=== PATIENT | male | born 1985 | race Caucasian/White ===

== ENCOUNTER 2023-02-15 10:32 | Emergency (ER) | payer OTHER, SELFPAY ==
--- NOTE | ~2023-02-15 | XR_ITS ---
EXAMINATION: XR ANKLE, RIGHT XR FOOT, RIGHT CLINICAL INFORMATION: Pain following inversion injury. COMPARISON: None available. TECHNIQUE: AP, lateral, and mortise views of the right foot and right ankle were obtained. FINDINGS: Oblique, mildly displaced fracture through the base of the 5th metatarsal with extension to the tarsometatarsal articular surface where the fracture gap measures up to 0.5 cm. Overlying lateral soft tissue swelling. Corticated ossification adjacent to the medial malleolus likely indicating a remote avulsion fracture fragment. Dystrophic ossification within the distal tibiofibular syndesmosis. The ankle mortise is maintained. No joint space narrowing or marginal osteophytes. Dorsal calcaneal enthesophyte. XR/XR ankle RT min 3V IMPRESSION: Oblique, mildly displaced fracture through the base of the 5th metatarsal with extension to the tarsometatarsal articular surface. Overlying lateral soft tissue swelling.
--- NOTE | ~2023-02-15 | XR_ITS ---
EXAMINATION: XR ANKLE, RIGHT XR FOOT, RIGHT CLINICAL INFORMATION: Pain following inversion injury. COMPARISON: None available. TECHNIQUE: AP, lateral, and mortise views of the right foot and right ankle were obtained. FINDINGS: Oblique, mildly displaced fracture through the base of the 5th metatarsal with extension to the tarsometatarsal articular surface where the fracture gap measures up to 0.5 cm. Overlying lateral soft tissue swelling. Corticated ossification adjacent to the medial malleolus likely indicating a remote avulsion fracture fragment. Dystrophic ossification within the distal tibiofibular syndesmosis. The ankle mortise is maintained. No joint space narrowing or marginal osteophytes. Dorsal calcaneal enthesophyte. XR/XR foot RT min 3V IMPRESSION: Oblique, mildly displaced fracture through the base of the 5th metatarsal with extension to the tarsometatarsal articular surface. Overlying lateral soft tissue swelling.
[2023-02-15 10:57] VITALS: BP 140/89; PULSE 90; RESP 20; TEMP 36.4; O2SAT 95; BMI 36.9
--- NOTE | 2023-02-15 10:57 | ED.LOWEXIN ---
HPI - Extremity Injury (Lower) General Chief Complaint: Extremity Injury, Lower Stated Complaint: R foot inj-work related Time Seen by Provider: 02/15/23 12:20 Source: patient Mode of arrival: ambulatory Limitations: no limitations History of Present Illness HPI Narrative: 38-year-old male presents to the ED for twisting ankle/ foot while walking on the curb in front of his job. Patient denies falling to the ground or hitting head. Patient denies any other trauma. Patient states pain on ambulation of right foot. Related Data Previous Rx's Medication Instructions Recorded naproxen 500 mg tablet 500 mg PO BID PRN pain 7 days #14 02/15/23 tabs oxycodone 5 mg capsule 5 mg PO TID PRN pain 3 days #9 caps 02/15/23 Allergies Allergy/AdvReac Type Severity Reaction Status Date / Time No Known Allergies Allergy Verified 02/15/23 11:01 Review of Systems Review of Systems: Right foot pain Yes all other systems are reviewed and are negative [facility] Social History Social History Advance Directives: No Physical Exam Vital Signs: Vital Signs: Last Vital Signs Temp 97.6 F 02/15/23 10:57 Pulse 90 02/15/23 10:57 Resp 20 02/15/23 10:57 BP 140/89 H 02/15/23 10:57 Pulse Ox 95 02/15/23 10:57 O2 Del Method Room Air 02/15/23 10:57 BMI result Body Mass Index 36.9 Const: General: cooperative, healthy appearing, comfortable, no acute distress, well developed, alert, awake and Physically active Orientation/consciousness: oriented to person, oriented to place, oriented to time and patient oriented x3 HEENT: Head: Yes normal to inspection, Yes No palpable skull fracture present, Yes normocephalic, Yes atraumatic and No abrasion Eyes: General: appearance normal, both eyes and all related structures Neck: Neck: Yes normal visual inspection, Yes full ROM, Yes no lymphadenopathy, Yes no meningeal signs, Yes trachea midline, Yes supple, No anterior neck swelling and No tender Chest: Chest palpation & inspection: normal inspection of the chest and normal palpation of entire chest wall Resp: Effort & Inspection: normal respiratory effort and able to speak in complete sentences Auscultation: clear to auscultation bilaterally Cardio: Jugular venous distension: no JVD Heart sounds: S1 normal heart sound present and S2 normal heart sound present GI: Inspection: No abdominal wall ecchymosis Palpation (GI): Soft to palpation, not firm, nontender, no guarding and not rigid : General: No CVA tenderness and Yes no CVA tenderness Back/Spine/Pelvis: Back: no CVA tenderness, No CVA tenderness and No back tenderness Skin: General skin exam: no rashes or lesions noted and elasticity normal Neuro: General: oriented to person, oriented to place, oriented to time, patient oriented x3, tone normal, moves all extremities, Normal light touch and pain sensation, no meningeal signs, no focal motor deficits, CN's II-XI intact bilaterally and normal sensation to monofilament Extrem: General: Yes normal to inspection and Yes full ROM Ankle/foot/toe images: 1. positive for tenderness on palpation. Negative for crepitus, ecchymosis or deformity. Positive for slight swelling. Negative erythema. Neurovascular exam intact. Motor exam intact but limited due to pain Psych: Appearance: grossly normal, well kempt and not disheveled Course Course Course Narrative: This is an RME: Additional HPI, ROS, PE not included below will be deferred to primary provider. This is a [id number]-male presenting to the emergency department with a complaint of right foot pain since today. Pt states that he was walking in a parking lot and inverted his right ankle. He immediately felt a pop in his right foot. Patient has been unable to bear weight on his foot since. Medial and lateral malleoli are nontender. Patient has exquisite tenderness palpation overlying the right 5th metatarsal. Good DP pulse. Plan: xray foot and ankle Medications Administered Discontinued Medications Generic Name Dose Route Start Last Admin Trade Name Kassi PRN Reason Stop Dose Admin Acetaminophen 975 mg 02/15/23 13:46 02/15/23 14:12 Acetaminophen 325 Mg Tablet PO 02/15/23 13:47 975 mg ONCE ONE Administration Ibuprofen 800 mg 02/15/23 13:46 02/15/23 14:12 Ibuprofen 800 Mg Tablet PO 02/15/23 13:47 800 mg ONCE ONE Administration Medical Decision Making Medical Decision Making MDM Narrative: 38-year-old male presents to ED for right foot pain after twisting foot on probing front of his job. Patient denies falling to the ground patient denies hitting head or loss of consciousness. Patient states no other trauma. Right lower extremity neurovascular exam intact. Motor exam intact but limited due to pain. Whole-body expecting negative for signs of obvious life-threatening traumatic injury. Patient placed in splint and crutches. Patient informed to follow-up with orthopedic surgeon. Patient educated on signs of DVT, cellulitis, or compartment syndrome and informed to return to the ED immediately if he has them any other concerning symptoms Differential Diagnosis Differential Diagnoses: The differential diagnosis associated with the presentation includes ( ankle fracture, foot fracture, ankle foot dislocation,) Independent Interpretation I performed an independent interpretation of an: Plain X-Ray Radiology Impression Discussion of test interpretation with radiology: I have reviewed the radiologist's reading. External Record Review External record reviewed: Other ( prior visits) Prescription Management I considered prescription management with: Pain Medication Discharge Plan Discharge Clinical Impression: Fracture of base of fifth metatarsal bone Patient Disposition: Home, Self-Care Instructions: Crutch Instructions (ED), Foot Fracture in Adults (ED) Additional Instructions: you need follow-up with our connection and also orthopedic surgeon. You will be discharged with pain medication. Return to the ED immediately for worsening pain and right lower extremity, bluish black discoloration of toes, numbness/tingling lower extremity, swelling, redness, calf pain, chest pain, shortness of breath, fever, chills, or any other concerning symptoms. Prescriptions: New naproxen 500 mg tablet 500 mg PO BID PRN (Reason: pain) 7 Days Qty: 14 0RF oxycodone 5 mg capsule 5 mg PO TID PRN (Reason: pain) 3 Days Qty: 9 0RF Rx Instructions: Partial Fill upon patient request. Referrals: [facility] [Provider Group] ( right 5th base metatarsal fracture) [facility] [Outside] ( Right 5th base metatarsal fracture) Stand Alone Forms: Work/School Release Interventions: ED Discharge Assessment Last Done: 02/15/23 14:59 Discharge Date/Time: 02/15/23 15:00 Print Language: Albanian
[2023-02-15] MEDS: Acetaminophen 325 MG TABLET 975 MG PO (14:12)
[2023-02-15] MEDS: Ibuprofen 800 MG TABLET PO (14:12)
--- NOTE | 2023-02-15 14:13 | PC.NURSE ---
pt medicated per MAR
== END 2023-02-15 15:00 | disposition home or self-care (01) ==
PROVIDERS: Emergency Provider Internal Medicine
DX: S92.351A Displaced fracture of fifth metatarsal bone, right foot, initial encounter for closed fracture (principal); M25.571 Pain in right ankle and joints of right foot; X50.1XXA Overexertion from prolonged static or awkward postures, initial encounter; Y93.9 Activity, unspecified; Y92.9 Unspecified place or not applicable; Y99.9 Unspecified external cause status
CPT/HCPCS: 29515; 73610; 73630; 99283; 99284

== ENCOUNTER 2023-02-25 10:25 | Outpatient (AMB) | payer OTHER, SELFPAY ==
--- NOTE | 2023-02-25 10:27 | A.OFFVIS_ITS ---
Intake Vital Signs 02/25/23 10:50 Height 5 ft 9 in Weight 250 lb BMI 36.9 Intake Visit Reasons: fc- right fifth metatarsal fracture Intake Note: Paul a 38 year old male presents today for an ER follow up of right 5th metatarsal fx, DOI 02/15/23. Patient reports while leaving a work meeting he fell on asphalt causing him to invert his right ankle. He immediately felt a pop in his right foot, presented to [facility] ED the same day where xrays were taken and placed in a splint. Currently he has dull pain pain that increases with accidentally bumping his foot. Allergies No Known Allergies Allergy (Verified 02/25/23 10:30) HPI fc- right fifth metatarsal fracture HPI Details 38-year-old male who presents to the off ice today for an injury he sustained to his right foot while at work on 02/15/23. He states he was iin a parking lot and he was on the handicap ramp when he inverted his right ankle and felt a pop, He was seen at ED where he was given a splint and referred to our office. He currently states he has dull pain in his small toe which is aggravated with accidentally bumping. He is unable to weight bear since his DOI. 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 Review of Systems Const All systems reviewed & are unremarkable except as noted in HPI and below Physical Exam Vital Signs: BMI result Body Mass Index 36.9 Const General: cooperative, healthy appearing, comfortable, no acute distress, well developed and alert Orientation/consciousness: patient oriented x3 HEENT Head: Yes normal to inspection, Yes normocephalic and Yes atraumatic Eyes General: appearance normal, both eyes and all related structures Neck Neck: Yes normal visual inspection and Yes no lymphadenopathy Resp Effort & Inspection: normal respiratory effort and able to speak in complete sentences Cardio Rate: regular rate Peripheral pulses: Peripheral pulses 2+ throughout GI Inspection: Yes normal to inspection Palpation (GI): Soft to palpation Skin General skin exam: no rashes or lesions noted Neuro General: patient oriented x3 Extrem Other: Right foot: Skin intact. There is some bruising of the lateral edge of the left foot. There is tenderness at the base of the 5th metatarsal. Sensation intact. EHL intact. No pain along the mediolateral malleolus. Neurovascularly intact. Psych Appearance: grossly normal Mental Status: mental status grossly normal Office Procedures Fracture Care Fracture Billing Code: Fracture Billing Code Results Reviewed Results Reviewed: xrays of the right foot obtained in the ED on 02/15/23 show a displaced 5th meta tarsal fracture Assessment & Plan Assessment & Plan (1) Fracture of fifth metatarsal bone of right foot: Code(s): S92.351A - Displaced fracture of fifth metatarsal bone, right foot, initial encounter for closed fracture Qualifiers: Encounter type: initial encounter Fracture type: closed Fracture alignment: displaced Qualified Code(s): S92.351A - Displaced fracture of fifth metatarsal bone, right foot, initial encounter for closed fracture Plan I discussed the case with Dr. Alejandra. I discussed the extent of the injury to the patient and options available. Given the extent of the fracture pattern and high risk of further displacement, it is recommended that we surgically fix this to help with stability and restoring anatomy. I explained to the patient the procedure in detail along with the risks, benefits and alternatives. Risks including but not limited to infection, wound breakdown, stiffness, ongoing pain, nonunion or malunion, and possible complications with hardware. He does understand all this and would like to proceed with open reduction internal fixation of the 5th metatarsal with Dr. Alejandra. He will be booked accordingly. Patient Instructions: Scribed for Wilda Carias PA-C, by Rico Borrego medical/surgery registered nurse, on 02/25/2023 at 10:30 AM EST. Wilda Brandt PA-C, have personally reviewed and agree with the information entered by the scribe. Coding Level of Care Code Global (88872) Diagnoses Closed displaced fracture of fifth metatarsal bone of right foot, initial encounter S92.351A Encounter type: initial encounter Fracture type: closed Fracture alignment: displaced CPT Codes Fracture Care - Fracture Billing Code: Fracture Billing Code ([id number])
[2023-02-25 10:50] VITALS: BMI 36.9
== END 2023-02-25 11:25 | disposition home or self-care (01) ==
PROVIDERS: Visit Provider Physician Assistant
DX: S92.351A Displaced fracture of fifth metatarsal bone, right foot, initial encounter for closed fracture (principal)
CPT/HCPCS: 99204

== ENCOUNTER → 2023-02-25 10:25 | Outpatient (BNVA) | payer OTHER, SELFPAY | PROVIDERS: Visit Provider Physician Assistant | DX: S92.351A Displaced fracture of fifth metatarsal bone, right foot, initial encounter for closed fracture (principal); X50.1XXA Overexertion from prolonged static or awkward postures, initial encounter; W01.198A Fall on same level from slipping, tripping and stumbling with subsequent striking against other object, initial encounter; Y93.01 Activity, walking, marching and hiking; Y92.89 Other specified places as the place of occurrence of the external cause; Y99.0 Civilian activity done for income or pay | CPT/HCPCS: 99202 ==

== ENCOUNTER 2023-03-03 10:41 | Day surgery (SDC) | payer OTHER, SELFPAY ==
--- NOTE | 2023-03-02 10:02 | P.CONAN_ITS ---
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 Meds Allergies Allergy/AdvReac Type Severity Reaction Status Date / Time No Known Allergies Allergy Verified 02/25/23 10:30 Exam Exam Date and Time: March 02, 2023 1002 Assessment and Plan Assessment Anesthesia Assessment: Chart Reviewed Documented by User: Mayra Courtney MD 03/03/23 11:13 HPI - Anesthesia Eval Consult details Narrative: 38yo M for Right 5th Metatarsal ORIF morbid obesity PMFSH Family History Family history of problems with anesthesia: No Surgical History History of Problems with Anesthesia: No Social History Social History Patient Tobacco Use Status: Never used Tobacco Are you DNR?: No Advance Directives: No Advance Directives Information Provided: Yes Current occupational status: employed 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 Meds Allergies Allergy/AdvReac Type Severity Reaction Status Date / Time No Known Allergies Allergy Verified 02/25/23 10:30 Exam Airway Mallampati Class: II (but morbid obesity) TM Dist: >3cm Neck ROM: Full Heart: rrr Lungs: cta Assessment and Plan Assessment Anesthesia Assessment: Anesthesia Plan Discussed Final Anesthetic Review Family History of Problems with Anesthesia: No History of Problems with Anesthesia: No NPO: Yes ASA Class: II Final Preanesthetic Review: No Changes in Pt Med Stat, Meds/Allgs Chart Reviewed, Consent Obtained/Reviewed and Anes Risks/Benef Reviewed Patient Risk: Intermediate Procedure Risk: Low Anesthetic Plan Anesthetic Plan: GA and Regional Block Disposition: Standard PACU
--- NOTE | ~2023-03-03 | FL_ITS ---
EXAMINATION: XR FLUOROSCOPY WITH IMAGES CLINICAL INFORMATION: Fracture right 5th metacarpal. COMPARISON: Right foot x-ray 02/15/2023 TECHNIQUE: Fluoroscopy Supervised By: Dr. Alexis Alejandra. Fluoroscopy Time: 1.0 minute. Cumulative Dose: 3.33 mGy. DAP: 0.0578 Gycm2. Images: 4. FINDINGS: Images demonstrate screw transfixing fracture of the base of the right fifth metatarsal bone with improved alignment. FL/FL guidance in OR IMPRESSION: Fluoroscopy guidance for ORIF of right fifth metatarsal fracture
[2023-03-03 10:42] VITALS: BP 139/106; PULSE 95; RESP 18; TEMP 35.8; O2SAT 97; BMI 35.4
[2023-03-03] MEDS: Lactated Ringers 1,000 ML 100 ML IVCONT (11:09)
--- NOTE | 2023-03-03 13:45 | MHC.SHP ---
Pre-Procedural Eval Section A Date of Service: 03/03/23 The patient is an INPATIENT: No Changes since office visit: No Cold of Flu in the past 2 weeks, No New Medical Problems, No Changes in Medication and No Patient answered all questions The History & Physical has been completed within 30 days and I have reviewed it.: Yes Section B Chief Complaint: Displaced fracture of fifth metatarsal bone, right Allergies: Allergies Allergy/AdvReac Type Severity Reaction Status Date / Time No Known Allergies Allergy Verified 02/25/23 10:30 Plan I have reviewed the history and physical and performed a pertinent physical examination on my patient. No changes have occurred unless specified. Time Spent With Patient Time: Total time managing care of this patient today ____ minutes.
--- NOTE | 2023-03-03 13:46 | PM.OP ---
Brief Operative Note Date of Service: 03/03/23 Pre-op diagnosis: Right 5th MT fracture Post-op diagnosis: same Procedure: ORIF right 5th MT fracture Implants: Bonnyman partially threaded cancellous screw 5 x 46 Surgeon: Alexis Alejandra MD Anesthesia: GLMA and regional Was an Freelance Court Reporter used for this Procedure?: Yes Freelance Court Reporter: Kimmie Anne Estimated blood loss (mL): 25 IV fluids (mL): 800 Pathology: none sent Condition: stable Disposition: PACU
[2023-03-03 13:54] VITALS: BP 148/93; PULSE 77; RESP 16; TEMP 36.1; O2SAT 99
[2023-03-03 13:59] VITALS: BP 153/111; PULSE 79; RESP 16; O2SAT 99
[2023-03-03 14:04] VITALS: BP 143/98; PULSE 72; RESP 16; O2SAT 99
[2023-03-03 14:09] VITALS: BP 133/87; PULSE 77; RESP 16; O2SAT 99
[2023-03-03 14:24] VITALS: BP 133/76; PULSE 67; RESP 16; TEMP 35.8; O2SAT 99
--- NOTE | 2023-03-25 20:25 | P.OP_ITS ---
Operative Note Operative Note Date of Service: 03/03/23 Narrative: Date of Service: 03/03/23 Pre-op diagnosis: Right 5th MT fracture Post-op diagnosis: same Procedure: ORIF right 5th MT fracture Implants: Familia partially threaded cancellous screw 5 x 46 Surgeon: Alexis Alejandra MD Anesthesia: GLMA and regional Was an Mortgage Or Loan Underwriter used for this Procedure?: Yes Mortgage Or Loan Underwriter: Kimmie Anne Estimated blood loss (mL): 25 IV fluids (mL): 800 Pathology: none sent Condition: stable Disposition: PACU Procedure in detail: Patient was brought to the operating room and placed supine on the surgical table. He was prepped and draped in standard sterile fashion and a time out was called to identify proper site, proper procedure and IV antibiotics per weight were administered. I began by localizing the fracture using biplanar fluoro. Once I was certain I could easily image the proximal 5th MT I made a 1 cm inc proximal to the base of the 4th. The superior aspect of the proximal fragment was visualized and the extensor tendon was avoided. I used a sharp tenaculum to reduce the fracture provisionally. This was accomplished but the proximal fragment was small. I placed a k-wire and then measured my screw length and inserted a 5 mm screw x 46 mm until I had an anatomic reduction. I confirmed the reduction and hardware placement with biplanar fluoro. The wound was cleaned and then closed. there were no known complications. Sterile dressings were applied. A lateral splint was also placed.
== END 2023-03-03 15:23 | disposition home or self-care (01) ==
LOC: HO.SSS 10:41
PROVIDERS: Visit Provider Orthopaedic Surgery
PROC: (CPT 28485; principal; 2023-03-03 14:10)
DX: S92.351A Displaced fracture of fifth metatarsal bone, right foot, initial encounter for closed fracture (principal); X50.1XXA Overexertion from prolonged static or awkward postures, initial encounter; Y93.01 Activity, walking, marching and hiking; Y92.481 Parking lot as the place of occurrence of the external cause; Y99.0 Civilian activity done for income or pay
CPT/HCPCS: 28485; C1713; J0665; J0690; J1100; J2250; J2405; J2704; J3010

== ENCOUNTER → 2023-03-03 10:41 | Outpatient (BNV) | payer OTHER, SELFPAY | PROVIDERS: Visit Provider Orthopaedic Surgery | DX: S92.351A Displaced fracture of fifth metatarsal bone, right foot, initial encounter for closed fracture (principal) | CPT/HCPCS: 28485 ==

== ENCOUNTER 2023-03-16 10:38 | Outpatient (REF) | payer OTHER, SELFPAY ==
--- NOTE | ~2023-03-16 | XR_ITS ---
EXAMINATION: XR FOOT, RIGHT CLINICAL INFORMATION: Pain in the right foot COMPARISON: 02/15/2023 TECHNIQUE: AP, lateral, and oblique views of the right foot. FINDINGS: Patient is status post FUSION WITH SINGLE SCREW fracture fragment of the base of the fifth metatarsal tarsal bone. Fragments are close to anatomical alignment fracture line is still visualized. There are skin izzy present. XR/XR foot RT min 3V IMPRESSION: Postsurgical changes with placement of compression screw at the fifth metatarsal bone
== END 2023-03-16 10:39 | disposition home or self-care (01) ==
LOC: HO.HOSX 10:38
PROVIDERS: Visit Provider Physician Assistant
DX: S92.351D Displaced fracture of fifth metatarsal bone, right foot, subsequent encounter for fracture with routine healing (principal)
CPT/HCPCS: 73630

== ENCOUNTER 2023-03-16 14:14 | Outpatient (AMB) | payer OTHER, SELFPAY ==
--- NOTE | 2023-03-16 14:29 | MHC.OFFVIS ---
Intake Intake Visit Reasons: PO Rt ORIF 5th metatarsal 03/03/23 NE Intake Note: Paul is a 38 year old male who presents today for a post op appointment s/p right ORIF 5th metatarsal 03/03/23 NE. Patient reports no pain or discomfort. He states that he is having a really bad back spasm. Allergies No Known Allergies Allergy (Verified 03/16/23 14:30) HPI PO Rt ORIF 5th metatarsal 03/03/23 NE HPI Details 38-year-old male who presents in the office today 13 days status post right foot 5th metatarsal fracture ORIF, which was performed on 03/03/[address] Alejandra. The patient reports no pain or discomfort in the right foot while in the office today. The patient reports severe back spasms. OF NOTE: While in the room the patient was diaphoretic, extremely pale, and excessively perspiring. He felt nauseous and was given an emesis bag. 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 Review of Systems Const All systems reviewed & are unremarkable except as noted in HPI and below Physical Exam Const General: cooperative, healthy appearing and no acute distress Resp Effort & Inspection: normal respiratory effort and able to speak in complete sentences Cardio Rate: regular rate Peripheral pulses: Peripheral pulses 2+ throughout GI Palpation (GI): Soft to palpation Skin Lesions: no lesions Rashes: no rashes Extrem Other: Right foot: Incision site is clean, dry, and intact. Staple intact. No surrounding erythema or drainage. No signs of infection. Sensation intact. Pedal pulse intact. Assessment & Plan Assessment & Plan (1) Fracture of fifth metatarsal bone of right foot: Code(s): S92.351A - Displaced fracture of fifth metatarsal bone, right foot, initial encounter for closed fracture Qualifiers: Encounter type: initial encounter Fracture alignment: displaced Fracture type: closed Qualified Code(s): S92.351A - Displaced fracture of fifth metatarsal bone, right foot, initial encounter for closed fracture Plan Mr. Madrid is a 38-year-old male who presents in the office today 13 days status post right foot 5th metatarsal fracture ORIF, which was performed on 03/03/[address] Alejandra. The patient reports no pain or discomfort in the right foot while in the office today. The patient reports severe back spasms. OF NOTE: While in the room the patient was diaphoretic, extremely pale, and excessively perspiring. He felt nauseous and was given an emesis bag. Back: Patient is complaining of severe back spasms at this time. He states the back spasms are so sever that he is having difficulty breathing. I have suggested to the patient that he should present to the ED for further evaluation and treatment and pain management. The patient is apprehensive at this time and does not wish to proceed to the emergency department. I spoke with our Pain Management office, to Osiris Curry, for recommendation for muscle spasms. She recommended a prescription for Flexeril 5 mg TID and stated he may take 2 tabs at bedtime PRN. A prescription was sent to the pharmacy today. He was instructed he should not drive while taking the medication. If his symptoms worsen he should present to the emergency department. Right foot: Emiliana were removed and steri-stripes were applied while in the office today. He was placed in a custom made short leg cast. He will continue to remain non-weight bearing. Follow up will be in 4 weeks with repeat x-rays out of the cast, or sooner if needed. X-rays of the right foot which were obtained while in the office today and were reviewed by me, Kimmie Anne PA-C, revealed orthopedic hardware intact with routine healing. Orders: Orders XR foot RT min 3V 03/16/23 M79.673 - Pain in unspecified foot Medications: New cyclobenzaprine 5 mg PO TID 28 tabs 0RF Patient Instructions: Scribed for Kimmie Anne PA-C by Renu Landers medical care administrator, on 03/16/2023 at 2:17 pm, EST. Coding Level of Care Code Global (63723) Diagnoses Closed displaced fracture of fifth metatarsal bone of right foot, initial encounter S92.351A Encounter type: initial encounter Fracture alignment: displaced Fracture type: closed
== END 2023-03-16 16:53 | disposition home or self-care (01) ==
PROVIDERS: Visit Provider Physician Assistant
DX: S92.351A Displaced fracture of fifth metatarsal bone, right foot, initial encounter for closed fracture (principal)
CPT/HCPCS: 99024

== ENCOUNTER 2023-04-08 12:28 | Outpatient (REF) | payer OTHER, SELFPAY ==
--- NOTE | ~2023-04-08 | XR_ITS ---
EXAMINATION: XR FOOT, RIGHT CLINICAL INFORMATION: Pain. COMPARISON: Radiograph right foot 03/16/2023. TECHNIQUE: AP, lateral, and oblique views of the right foot. FINDINGS: Redemonstration of partially cannulated screw along the proximal aspect of the fifth metatarsal with increased osseous bridging and less distinct fracture line at the base of the fifth metatarsal. New mildly displaced periprosthetic fracture along the proximal aspect of the fifth metatarsal just superior to the screw. Increased soft tissue swelling along the dorsal surface of the forefoot on the lateral view. XR/XR foot RT min 3V IMPRESSION: 1. New mildly displaced periprosthetic fracture along the proximal aspect of the fifth metatarsal just superior to the screw. 2. Healing fracture at the base of the fifth metatarsal. 3. Nonspecific increased soft tissue swelling along the dorsal surface of the forefoot on the lateral view. The report will be called to the ordering clinician by a [facility] [employer].
== END 2023-04-08 12:29 | disposition home or self-care (01) ==
LOC: HO.HOSX 12:28
PROVIDERS: Visit Provider Physician Assistant
DX: S92.351D Displaced fracture of fifth metatarsal bone, right foot, subsequent encounter for fracture with routine healing (principal)
CPT/HCPCS: 73630; 99212

== ENCOUNTER 2023-04-08 12:28 | Outpatient (AMB) | payer OTHER, SELFPAY ==
--- NOTE | 2023-04-08 13:53 | MHC.OFFVIS ---
Intake Intake Visit Reasons: PO Rt ORIF 5th metatarsal 03/03/23 NE Allergies No Known Allergies Allergy (Verified 03/16/23 14:30) HPI PO Rt ORIF 5th metatarsal 03/03/23 NE HPI Details 38-year-old male who presents in the office today for a cast change; 13 days status post right foot 5th metatarsal fracture ORIF, which was performed on 03/03/[address] Alejandra. 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 Review of Systems Const All systems reviewed & are unremarkable except as noted in HPI and below Physical Exam Const General: cooperative, healthy appearing and no acute distress Resp Effort & Inspection: normal respiratory effort and able to speak in complete sentences Cardio Rate: regular rate Peripheral pulses: Peripheral pulses 2+ throughout GI Palpation (GI): Soft to palpation Skin Lesions: no lesions Rashes: no rashes Extrem Other: Right foot: Superficial skin is macerated from getting wet in the shower and remaining in the cast for several hours after. No surrounding erythema or drainage at the incision site. No signs of infection. Able to dorsiflex, plantarflex, pronate, and supinate with mild stiffness. Sensation intact. Pedal pulse intact. Assessment & Plan Assessment & Plan (1) Fracture of fifth metatarsal bone of right foot: Code(s): S92.351A - Displaced fracture of fifth metatarsal bone, right foot, initial encounter for closed fracture Qualifiers: Encounter type: initial encounter Fracture alignment: displaced Fracture type: closed Qualified Code(s): S92.351A - Displaced fracture of fifth metatarsal bone, right foot, initial encounter for closed fracture Plan Mr. Madrid is a 38-year-old male who presents in the office today for a cast change; 13 days status post right foot 5th metatarsal fracture ORIF, which was performed on 03/03/[address] Alejandra. The case was reviewed with Dr. Alejandra who was in the office today but unable to see the patient with me and a collaborative treatment plan was made. Based off the x-rays obtained today he was transitioned out of the cast into a walking boot, off the shelf. He was instructed if he has no pain with weight bearing he may weight bear as tolerated. However, should he have pain then he should limit weight bearing until his follow up. Follow up will be in 3 weeks with repeat x-rays and Dr. Alejandra in the office, or sooner if needed. X-rays of the right foot which were obtained while in the office today and were reviewed by me, Kimmie Anne PA-C, revealed intact orthopedic hardware with routine healing. Orders: Orders XR foot RT min 3V 04/08/23 M79.673 - Pain in unspecified foot Patient Instructions: Scribed for Kimmie Anne PA-C by Renu Landers medical staff services manager, on 04/08/2023 at 12:31 pm, EST. Coding Level of Care Code Global (03945) Diagnoses Closed displaced fracture of fifth metatarsal bone of right foot, initial encounter S92.351A Encounter type: initial encounter Fracture alignment: displaced Fracture type: closed
== END 2023-04-08 13:24 | disposition home or self-care (01) ==
PROVIDERS: Visit Provider Physician Assistant
DX: S92.351A Displaced fracture of fifth metatarsal bone, right foot, initial encounter for closed fracture (principal)
CPT/HCPCS: 99024

== ENCOUNTER 2023-04-09 11:58 | Outpatient (REF) | payer OTHER, SELFPAY | END 2023-04-09 11:59 | disposition home or self-care (01) | LOC: HO.HOSX 11:58 | PROVIDERS: Visit Provider Physician Assistant | DX: Z13.89 Encounter for screening for other disorder (principal) ==

== ENCOUNTER 2023-04-29 10:06 | Outpatient (REF) | payer OTHER, SELFPAY ==
--- NOTE | ~2023-04-29 | XR_ITS ---
EXAMINATION: XR FOOT, RIGHT CLINICAL INFORMATION: Foot pain COMPARISON: 02/15/2023 and 04/08/2023 TECHNIQUE: 3 views of the right foot. FINDINGS: Again noted is the avulsion fracture fragment of the base of the fifth metatarsal which has been stabilized by a cannulated lag screw. No hardware loosening. There is persistent lucency along fracture margins. Difficult to determine whether there is any bridging bone between the base fragment and the remainder of the metatarsal. Partial healing along the fracture line is suspected. Again noted is the healing minimally displaced fracture of medial cortex of the distal diaphysis of the fifth metatarsal. No new fractures. Bones have normal alignment throughout the foot. The soft tissue swelling of the dorsal forefoot is similar in appearance compared to 04/08/2023. XR/XR foot RT min 3V IMPRESSION: * No evidence of loosening of the fifth metatarsal fixation screw. The avulsion fracture fragment remains reduced into near-anatomic position. Mild partial healing of the fracture fragment is suspected. * Again noted is a healing minimally displaced fracture involving the medial cortex of the distal diaphysis of the fifth metatarsal. No new fractures.
== END 2023-04-29 10:07 | disposition home or self-care (01) ==
LOC: HO.HOSX 10:06
PROVIDERS: Visit Provider Physician Assistant
DX: S92.351D Displaced fracture of fifth metatarsal bone, right foot, subsequent encounter for fracture with routine healing (principal); M79.671 Pain in right foot; Z98.890 Other specified postprocedural states
CPT/HCPCS: 73630; 99212

== ENCOUNTER 2023-04-29 11:15 | Outpatient (AMB) | payer OTHER, SELFPAY ==
--- NOTE | 2023-04-29 11:25 | MHC.OFFVIS ---
Intake Vital Signs 04/29/23 11:26 Height 5 ft 9 in Weight 240 lb BMI 35.4 Intake Visit Reasons: PO Rt ORIF 5th metatarsal 03/03/23 NE Intake Note: Paul is a 38 year old male who presents today for a post op appointment s/p right ORIF 5th metatarsal 03/03/23 NE. Patient reports he has been feeling better over this past weekend, 04/24/23. He states that his foot was swollen and hard to the touch until he began flexing his toes and started walking with the boot and crutch. He primarily uses his scooter to get around his home without using the boot. On 04/28/23 he took his trash out over to the dumpster down the road. He wore the boot but did not use crutches or his scooter. Once he returned home he took the boot off and described his right foot to be swollen but mushy. He reports the swelling has gone down a little today, 04/29/23, but still has some swelling. Cloth Checker Required: No Allergies No Known Allergies Allergy (Verified 04/29/23 11:32) HPI PO Rt ORIF 5th metatarsal 03/03/23 NE HPI Details 38-year-old male who presents in the office today 2 months status post right foot 5th metatarsal fracture ORIF, which was performed on 03/03/[address] Alejandra. I last saw the patient on 04/08/2023 when he was transitioned out of the cast and into a walking boot. He was told he may weight bear as tolerated. While in the office today he reports he has been feeling better over the weekend. He claims to have edema in the foot and states they are hard to the touch until he begins to flex the toes. 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 Review of Systems Const All systems reviewed & are unremarkable except as noted in HPI and below Physical Exam Vital Signs: BMI result Body Mass Index 35.4 Const General: cooperative, healthy appearing and no acute distress Resp Effort & Inspection: normal respiratory effort and able to speak in complete sentences Cardio Rate: regular rate Peripheral pulses: Peripheral pulses 2+ throughout GI Palpation (GI): Soft to palpation Skin Lesions: no lesions Rashes: no rashes Extrem Other: Right foot: Skin intact mild-mod edea. No surrounding erythema or drainage at the incision site. No signs of infection. Able to dorsiflex, plantarflex, pronate, and supinate with mild stiffness. Sensation intact. Pedal pulse intact. Assessment & Plan Assessment & Plan (1) Fracture of fifth metatarsal bone of right foot: Code(s): S92.351A - Displaced fracture of fifth metatarsal bone, right foot, initial encounter for closed fracture Qualifiers: Encounter type: initial encounter Fracture alignment: displaced Fracture type: closed Qualified Code(s): S92.351A - Displaced fracture of fifth metatarsal bone, right foot, initial encounter for closed fracture Plan Mr. Madrid is a 38-year-old male who presents in the office today 2 months status post right foot 5th metatarsal fracture ORIF, which was performed on 03/03/[address] Alejandra. I last saw the patient on 04/08/2023 when he was transitioned out of the cast and into a walking boot. He was told he may weight bear as tolerated. While in the office today he reports he has been feeling better over the weekend. He claims to have edema in the foot and states they are hard to the touch until he begins to flex the toes. The patient will be attending physical therapy for pain and edema management. He will begin to wean out of the boot at this time. I updated his work status to restricting work hour to between 32-40 hours per week with the goal of working 40 hours per week. An 8 hour work day is allowed. Follow up will be in 6 weeks with repeat x-rays, or sooner if needed. X-rays of the right foot which were obtained while in the office today and were reviewed by me, Kimmie Anne PA-C, revealed orthopedic hardware intact with routine healing. Orders: Orders XR foot RT min 3V Today M79.673 - Pain in unspecified foot PT Evaluation and Treatment Today S92.351A - Displaced fracture of fifth metatarsal bone, right foot, initial encounter for closed fracture Patient Instructions: Scribed for Kimmie Anne PA-C by Renu Landers medical and scientific illustrator, on 04/29/2023 at 11:17 am, EST. Coding Level of Care Code Global (77059) Diagnoses Closed displaced fracture of fifth metatarsal bone of right foot, initial encounter S92.351A Encounter type: initial encounter Fracture alignment: displaced Fracture type: closed
[2023-04-29 11:26] VITALS: BMI 35.4
== END 2023-04-29 11:55 | disposition home or self-care (01) ==
PROVIDERS: Visit Provider Physician Assistant
DX: S92.351A Displaced fracture of fifth metatarsal bone, right foot, initial encounter for closed fracture (principal)
CPT/HCPCS: 99024

== ENCOUNTER 2023-06-09 16:00 | Outpatient (RCR) | payer OTHER, SELFPAY ==
--- NOTE | 2023-05-07 11:52 | MHC.PT.EP ---
[facility] [place] Office [place] Office [place] Office [address] Deneen Sevilla [address] [phone] F: [phone] F: [phone] F: [phone] F: [phone] Physical Therapy Plan of Care Date of Evaluation: 05/07/23 Date of Surgery: 03/03/23 Diagnosis: DISPLACED FX OF 5TH METATARSAL BONE, Rt FOOT->PO Rt ORIF 5th metatarsal 03/03/23 NE Assessment: 38 YO MALE REF TO PT S/P ORIF Rt METATARSAL FX 03/03/23 (INITIAL FALL 02/15/23) WITH POST-OP CAST/ SCOOTER/NWB Rt LE STATUS UNTIL MID MAR 2023 AT WHICH TIME HE WAS TRANSITIONED TO A Rt WALKING BOOT ; RECENT ORTHO F/U-> WBAT AND TO BEGIN Rt LE BOOT WEAN. THE Pt HAS LIMITED ROM, STRENGTH DEFICTIS, ALTERED GAIT MECHANICS, COMPENSATORY POSTURES , AND FLUCTUATING DISCOMFORT. HE WOULD BENEFIT FROM PT TO ADDRESS THE ABOVE AND GUIDE HIM IN RESUMING FUNCTIONAL INDEPENDENCE. Frequency and Duration: The patient will be seen 2 x WK x 5 WKS Short Term Goals: *INCREASE Rt HIP IR AND HS FLEXIB *IMPROVE STANDIING WT BEARING/ TRUNK SYMM IN STREET SHOES *GRAD PROGRESSION W AROM Rt ANKLE/ FOOT *DECR Rt ANKLE/FOOT SORENESS TO 1-2/10 Legal Department Manager Goals: *SLS Rt LE x 15 SEC *IMPROVED STRENGTH IN Rt LE, EQUIV TO Lt LE *Pt DEMON WFL SQUAT MECH *Pt DEMON EFFICIENT GAIT MECH ON LEVEL GROUND AND STAIRS *Pt RESUME REG ADLs/ FUNCTIONAL MOB EVIDENT W IMPROVED LEFI () Treatment Plan: Modalities to reduce pain, spasms and effusion. Manual therapy to restore motion and function. Therapeutic exercise to improve strength and flexibility. Neuromuscular re-education for posture and balance. Therapeutic activities to return to functional activities of daily living. Electronically signed by: PEDRO JACKSON, PT Please sign and return to therapist. Thank you for your referral.
--- NOTE | 2023-07-23 07:17 | MHC.PT.DC ---
[facility] [place] Office [place] Office [place] Office [address] Deneen Sevilla [address] [phone] F: [phone] F: [phone] F: [phone] F: [phone] Physical Therapy Discharge Report Diagnosis: DISPLACED FX OF 5TH METATARSAL BONE, Rt FOOT->PO Rt ORIF 5th metatarsal 03/03/23 NE Date of Surgery: 03/03/23 Date of Evaluation: 05/07/23 Date of Discharge: 07/23/23 Treatments to Date: 8 Cancellations to Date: 1 No Shows to Date: 4 Discharge Status: Improved Function Patient Elected to Stop Visit Non-compliance Discharge Summary: Overall, the pt feels he has made 70% improvement regarding his foot/ankle since starting PT. He feels the areas he continues to have pain and difficulty including navigating stairs, prolonged ambulation (community ambulation), endurance, and balance. He has improved regarding his range and strength; however, he continues to be most limited in ankle dorsiflexion as noted by tendencies to compensate w/ pronation during the gait cycle and w/ stair navigation. He has poor tolerance of his dress shoes. We discussed switching to sneakers as he has immediate pain relief when wearing sneakers vs. dress shoes. He has achieved all of his short term goals and was making progress towards achieving his half-way goals. The Pt has not shown for his last 4 scheduled PT appts and is therefore discharged this date from PT per the department's no-show / attendance policy reviewed at his initial PT eval. Electronically signed by: Beatris Melendez,PT Please sign and return to therapist. Thank you for your referral.
== END 2023-07-23 07:18 | disposition home or self-care (01) ==
LOC: HO.PT 16:00
PROVIDERS: Visit Provider Physician Assistant
DX: S92.351D Displaced fracture of fifth metatarsal bone, right foot, subsequent encounter for fracture with routine healing (principal)
CPT/HCPCS: 97110; 97140; 97162; 97164; 97530

== ENCOUNTER 2023-06-10 08:42 | Outpatient (REF) | payer OTHER, SELFPAY ==
--- NOTE | ~2023-06-10 | XR_ITS ---
EXAMINATION: XR FOOT, RIGHT CLINICAL INFORMATION: Pain in unspecified foot. COMPARISON: 05/03/2023 right foot. TECHNIQUE: AP, lateral, and oblique views of the right foot. FINDINGS: Redemonstration of an avulsion fracture fragment at the base of the 5th metatarsal stabilized with a cannulated screw. Hardware appears intact. Redemonstration of decreased lucency along the fracture margins suggesting some interval bony bridging. Redemonstration of healing minimally displaced fracture of medial cortex of the distal diaphysis of the 5th metatarsal. XR/XR foot RT min 3V IMPRESSION: 1. Fifth metatarsal fixation screw appears intact. Avulsion fracture fragment remains reduced into near-anatomic position with evidence of some interval healing. 2. Redemonstration of healing minimally displaced fracture of the medial cortex of the distal diaphysis of the 5th metatarsal.
== END 2023-06-10 08:43 | disposition home or self-care (01) ==
LOC: HO.HOSX 08:42
PROVIDERS: Visit Provider Physician Assistant
DX: S92.351D Displaced fracture of fifth metatarsal bone, right foot, subsequent encounter for fracture with routine healing (principal); M79.671 Pain in right foot; X58.XXXD Exposure to other specified factors, subsequent encounter
CPT/HCPCS: 73630; 99212

== ENCOUNTER 2023-06-10 11:08 | Outpatient (AMB) | payer OTHER, SELFPAY ==
[2023-06-10 11:23] VITALS: BMI 35.4
--- NOTE | 2023-06-10 11:23 | A.OFFVIS_ITS ---
Intake Vital Signs 06/10/23 11:23 Height 5 ft 9 in Weight 240 lb BMI 35.4 Intake Visit Reasons: OV - Rt ORIF 5th metatarsal 03/03/23 NE Intake Note: Paul schneider 38 year old male presents today for a follow up s/p ORIF of right 5th metatarsal 03/03/23 NE. Patient reports he continues to work with PT, and feels he is about 70%. He has a fear of bearing full weight on his Right ankle, stating it feels like it will give out. Allergies No Known Allergies Allergy (Verified 06/10/23 11:31) HPI OV - Rt ORIF 5th metatarsal 03/03/23 NE HPI Details 38-year-old male who presents in the off ice today 3 months status post right foot 5th metatarsal fracture ORIF, which was performed on 03/03/[address] Alejandra. I last saw the patient in the office on 04/29/2023 where he was r eferred to physical therapy and he was instructed to wean out of the boot. I updated his work status to restricting work hour to between 32-40 hours per week with the goal of working 40 hours per week. An 8 hour work day is allowed. While in the office today the patient confirms he has been work with physical therapy and feels about 70% better. He expresses a concern for bearing full weight due to the ankle feeling weak and unstable with a wobbling sensation in the right ankle. He states he feels like this is an issues when ambulating stairs. He states he has no pain while in the office today. This is a worker?s compensation claim. 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 Review of Systems Const All systems reviewed & are unremarkable except as noted in HPI and below Physical Exam Vital Signs: BMI result Body Mass Index 35.4 Const General: cooperative, healthy appearing and no acute distress Resp Effort & Inspection: normal respiratory effort and able to speak in complete sentences Cardio Rate: regular rate Peripheral pulses: Peripheral pulses 2+ throughout GI Palpation (GI): Soft to palpation Skin Lesions: no lesions Rashes: no rashes Extrem Other: Right foot: Skin intact mild-mod edea. No surrounding erythema or drainage at the incision site. No signs of infection. Able to dorsiflex, plantarflex, pronate, and supinate with no deficits. Sensation intact. Pedal pulse intact. Assessment & Plan Assessment & Plan (1) Fracture of fifth metatarsal bone of right foot: Comment: Right foot 5th metatarsal fracture ORIF 03/03/2023 NE Code(s): S92.351A - Displaced fracture of fifth metatarsal bone, right foot, initial encounter for closed fracture Qualifiers: Encounter type: initial encounter Fracture alignment: displaced Fracture type: closed Qualified Code(s): S92.351A - Displaced fracture of fifth metatarsal bone, right foot, initial encounter for closed fracture Plan Mr. Madrid is a 38-year-old male who presents in the office today 3 months status post right foot 5th metatarsal fracture ORIF, which was performed on 03/03/[address] Alejandra. I last saw the patient in the office on 04/29/2023 where he was referred to physical therapy and he was instructed to wean out of the boot. I updated his work status to restricting work hour to between 32-40 hours per week with the goal of working 40 hours per week. An 8 hour work day is allowed. While in the office today the patient confirms he has been work with physical therapy and feels about 70% better. He expresses a concern for bearing full weight due to the ankle feeling weak and unstable with a wobbling sensation in the right ankle. He states he feels like this is an issues when ambulating stairs. He states he has no pain while in the office today. This is a worker?s compensation claim. I encourage for the patient to continue to work with physical therapy to focus on strengthening and stabilization the right ankle. A new prescription was placed while in the office today. Follow up will be in 6-8 weeks, or sooner if needed. X-rays of the right foot which were obtained while in the office today and were reviewed by me, Kimmie Anne PA-C, revealed orthopedic hardware intact with routine healing. Orders: Orders XR foot RT min 3V Today M79.673 - Pain in unspecified foot PT Evaluation and Treatment Today S92.351A - Displaced fracture of fifth metatarsal bone, right foot, initial encounter for closed fracture Patient Instructions: Scribed by Renu Landers medical scientific liaison, for Kimmie Anne PA-C on 06/10/2023 at 11:10 am, EST. Coding Level of Care Code Est Pt Level 4 (35385) Diagnoses Closed displaced fracture of fifth metatarsal bone of right foot, initial encounter S92.351A Encounter type: initial encounter Fracture alignment: displaced Fracture type: closed
== END 2023-06-10 11:47 | disposition home or self-care (01) ==
PROVIDERS: Visit Provider Physician Assistant
DX: S92.351D Displaced fracture of fifth metatarsal bone, right foot, subsequent encounter for fracture with routine healing (principal)
CPT/HCPCS: 99213

== ENCOUNTER 2023-07-27 10:18 | Outpatient (REF) | payer OTHER, SELFPAY | END 2023-07-27 10:19 | disposition home or self-care (01) | LOC: HO.HOSX 10:18 | PROVIDERS: Visit Provider Physician Assistant | DX: Z13.89 Encounter for screening for other disorder (principal) ==

== ENCOUNTER 2023-09-29 09:24 | Outpatient (AMB) | payer OTHER, SELFPAY ==
--- NOTE | 2023-09-29 09:37 | MHC.PC.OV ---
Vital Signs 09/29/23 09:40 Height 5 ft 8 in Weight 282 lb 6 oz BMI 42.9 BP 130/90 H Blood Pressure Location Lt brachial Position Sitting Pulse 83 Pulse Source Pulse Oximeter Pulse Oximetry (%) 96 Oxygen Delivery Method Room Air Intake Visit Reasons: PE Intake Note: Patient is a new patient here to establish care for Weight, Depression, Right foot injury, Toe fungi. Transferring care from unknown. Medical records have not been requested and have not received. [address] Freight Required: No Student Services Rep: Not Required per policy Accompanied by: Self / Same As Patient Allergies No Known Allergies Allergy (Verified 09/29/23 11:25) Medication List - Last Reconciled 09/29/23 by Walter Reyes MD Unobtainable Tobacco use date assessed: 09/29/23 Dental Screening Dental Screen Date: 09/29/23 Did you have a dental visit in the last 12 months?: No Did you have a dental problem in the last 6 months where you did not have access to dental care?: No Was dental information given to patient?: No HPI PE HPI Details 38-year-old male presents to the office to establish his care. Patient reports that his main problem is obesity. He has gained 100 lb in the last 3 years. He fractured his right foot which left him a mobile for 8 months. During this time he started consuming large quantities of food. He took the 1st dose of Wegovy, he ordered the medication online. He also consumes large quantities of alcohol. Patient drinks every day, alone. 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 Denies history of smoking or substance use. Patient admits that he could have depression and anxiety. His sleep patterns are disturbed. He also believes he could have attention deficit disorder. Never is able to complete a task. [facility], LAT[facility] Medical History (Updated 09/29/23 @ 11:24 by Walter Reyes MD) Fracture of fifth metatarsal bone of right foot Dystrophic nail Alcohol use disorder Generalized anxiety disorder Class 2 severe obesity with body mass index (BMI) of 35 to 39.9 with serious comorbidity Surgical History (Updated 09/29/23 @ 09:49 by POLLY Cardona) History of foot surgery Social History (Updated 09/29/23 @ 09:50 by POLLY Cardona) Housing: House (rented) Alcohol intake: current Alcohol intake frequency: a few times a week Patient Tobacco Use Status: Never used Tobacco e-Cigarette/Vaping Use: Never Used Second Hand Smoke Exposure: No service: No Current occupational status: employed 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 Cognitive needs: No Hearing needs: No Vision needs: No Questionnaire PHQ-9 Over the last 2 weeks, how often have you been bothered by any of the following problems? 1. Little interest or pleasure in doing things: not at all 2. Feeling down, depressed, or hopeless: not at all 3. Trouble falling or staying asleep, or sleeping too much: not at all 4. Feeling tired or having little energy: not at all 5. Poor appetite or overeating: not at all 6. Feeling bad about yourself - or that you are a failure or have let yourself or your family down: not at all 7. Trouble concentrating on things, such as reading the newspaper or watching television: not at all 8. Moving or speaking so slowly that other people could have noticed. Or the opposite - being so fidgety or restless that you have been moving around a lot more than usual: not at all 9. Thoughts that you would be better off or of hurting yourself in some way: not at all Total score: 0 Depression Screening Interpretation: Negative Depression Screening Done: Yes Source: Developed by Drs. Gatito Fabian, Daily Devries, Chandler Chiang and colleagues, with an educational charo from [employer]. Thrive Questionnaire Date Thrive assessed: 09/29/23 I am a: Patient What is your living situation today?: I have a steady place to live Within the past 12 months, did the food you bought not last and you didn't have the money to get more?: Never true Within the past 12 months, did you worry whether your food would run out before you got money to buy more?: Never true Do you have trouble paying for medicines?: No Do you have trouble getting transportation to medical appointments?: No Do you have trouble paying your heating and electricity bill?: No Do you have trouble taking care of your child, family member or friend?: No Do you have trouble with day-to-day activities such as bathing, preparing meals, shopping, managing finances, etc.?: No Are you currently unemployed and looking for a job?: No Are you interested in more education?: No Currently or been in a relationship where the following occur: no concerns reported THRIVE Score: 0 AUDIT C Alcohol Use Questionnaire (AUDIT-C) 1. How often do you have a drink containing alcohol?: 2-4 times a month 2. How many drinks containing alcohol do you have on a typical day when you are drinking?: 3 or 4 Total Score: 3 MACIEL-7 AMB Questionnaire MACIEL-7 Date MACIEL - 7 assessed: 09/29/23 Feeling nervous, anxious, or on edge: 0 = Not at all Not being able to stop or control worryin = Not at all Worrying too much about different things: 0 = Not at all Trouble relaxin = Not at all Being so restless that it is hard to sit still: 0 = Not at all Becoming easily annoyed or irritable: 0 = Not at all Feeling afraid as if something awful might happen: 0 = Not at all Total MACIEL-7 score (0-4 normal; 5-9 mild; 10-14 moderate; 15-21 severe): 0 Source: Developed by Drs. Gatito Fabian, Daily Devries, Chandler Chiang and colleagues, with an educational charo from [employer]. Physical exam (Primary Care) Vital Signs: Last Vital Signs Pulse 83 09/29/23 09:40 BP 130/90 H 09/29/23 09:40 Pulse Ox 96 09/29/23 09:40 Oxygen Delivery Method Room Air 09/29/23 09:40 BMI result Body Mass Index 42.9 Tobacco/Smoking Status: Tobacco use Status Tobacco use date assessed 09/29/23 09/29/23 09:52 Patient Tobacco Use Status Never used Tobacco 09/29/23 09:50 e-Cigarette/Vaping Use Never Used 09/29/23 09:52 PHQ-9: PHQ-9 Score PHQ-9: Total score 0 09/29/23 11:17 Depression Screening Interpretation: Negative Thrive Assessment: Date of Thrive Assessment Date Thrive assessed 09/29/23 09/29/23 09:38 Currently or been in a relationship where the following occur: no concerns reported Assessment and Plan Assessment & Plan (1) Class 2 severe obesity with body mass index (BMI) of 35 to 39.9 with serious comorbidity: Code(s): E66.01 - Morbid (severe) obesity due to excess calories Plan: 15 minute conversation on the importance of diet and exercise. Agreed to see the dietitian. Pt is on Wegovy. He gets it from an online provider. We will not be prescribing it from here. (2) Generalized anxiety disorder: Code(s): F41.1 - Generalized anxiety disorder Plan: His excessive alcohol use could be due to his underlying depression and anxiety. A psychiatry evaluation has been requested and I will ask them to start medications that could be prescribed from here. (3) Alcohol use disorder: Code(s): F10.90 - Alcohol use, unspecified, uncomplicated Plan: Patient acknowledges he may have a problem with excessive alcohol use. Encouraged abstinence. (4) Dystrophic nail: Code(s): L60.3 - Nail dystrophy Plan: No treatment for now. Once the depression and obesity issues are addressed will consider medications. (5) Fracture of fifth metatarsal bone of right foot: Comment: Right foot 5th metatarsal fracture ORIF 03/03/2023 [place] Code(s): S92.351A - Displaced fracture of fifth metatarsal bone, right foot, initial encounter for closed fracture Qualifiers: Encounter type: initial encounter Fracture alignment: displaced Fracture type: closed Qualified Code(s): S92.351A - Displaced fracture of fifth metatarsal bone, right foot, initial encounter for closed fracture Plan: Continue current management. Orders: Orders Lipid Panel Today E66.01 - Morbid (severe) obesity due to excess calories Liver Panel Today E66.01 - Morbid (severe) obesity due to excess calories Complete Blood Count no Diff Today E66.01 - Morbid (severe) obesity due to excess calories Thyroid Stimulating Hormone Today E66.01 - Morbid (severe) obesity due to excess calories Basic Metabolic Panel Today E66.01 - Morbid (severe) obesity due to excess calories Referrals Internal Auditor Nutrition Referral E66.01 - Morbid (severe) obesity due to excess calories Psychiatry Outpatient Consultation Service F41.1 - Generalized anxiety disorder Coding Level of Care Code New Pt Level 4 (58671) Complex EM visit Add On G2211 Diagnoses Class 2 severe obesity with body mass index (BMI) of 35 to 39.9 with serious comorbidity E66.01 Generalized anxiety disorder F41.1 Alcohol use disorder F10.90 Dystrophic nail L60.3 Closed displaced fracture of fifth metatarsal bone of right foot, initial encounter S92.351A Encounter type: initial encounter Fracture alignment: displaced Fracture type: closed
[2023-09-29 09:40] VITALS: BP 130/90; PULSE 83; O2SAT 96; BMI 42.9
== END 2023-09-29 10:27 | disposition home or self-care (01) ==
PROVIDERS: Visit Provider Internal Medicine
DX: F41.1 Generalized anxiety disorder (principal); E66.01 Morbid (severe) obesity due to excess calories; Z68.41 Body mass index [BMI] 40.0-44.9, adult; F10.90 Alcohol use, unspecified, uncomplicated; L60.3 Nail dystrophy; S92.351A Displaced fracture of fifth metatarsal bone, right foot, initial encounter for closed fracture
CPT/HCPCS: 99204; G2211

== ENCOUNTER 2023-10-05 09:40 | Outpatient (AMB) | payer OTHER, SELFPAY ==
[2023-10-05 09:44] VITALS: BMI 43.2
--- NOTE | 2023-10-05 09:44 | MHC.AMNUTRGE ---
VS Expanded 10/05/23 09:44 10/13/23 12:33 Height 5 ft 8 in 5 ft 8 in Weight 284 lb 6.341 oz 284 lb BMI 43.2 43.2 Intake Visit Reasons: Morbid Obesity/CONFIRMED Allergies No Known Allergies Allergy (Verified 09/29/23 11:25) Nutrition Presentation Details: Pt presents for MNT for obesity. The Pt was referred by PCP, Dr Reyes Pt admits to ETOH use >4 serving/d reports having stopped drinking in the past, has attended [facility] in the past , contemplating restarting Typical meal B: Bagel and cream cheese and ice coffee with cream and sugar 5 pm salad with chicken or beef and pasta or potato, gin /wine Physical activity: sedentary food frequency fruits: 0-1/d dairy 2+ /d fish not including BS Monitoring Most Recent Diabetes Results: No Data to Display RYC-Tfdanxe-Cg.Riley Equation Height: 5 ft 8 in Weight: 284 lb Resting Metabolic Rate: 2174.61 Calculated Activity Level: Mild Activity Calories Needed to Maintain Weight: 2990.09 Diagnosis Nutrition problem #1: excessive energy intake As related to (etiology) #1: diagnosis As evidenced by (sign/symptom) #1: high BMI (43.2 (09/2023)) [facility] Medical History (Updated 09/29/23 @ 11:24 by Walter Reyes MD) Fracture of fifth metatarsal bone of right foot Dystrophic nail Alcohol use disorder Generalized anxiety disorder Class 2 severe obesity with body mass index (BMI) of 35 to 39.9 with serious comorbidity Surgical History (Updated 09/29/23 @ 09:49 by POLLY Cardona) History of foot surgery Social History (Updated 09/29/23 @ 09:50 by POLLY Cardona) Housing: House (rented) Alcohol intake: current Alcohol intake frequency: a few times a week Patient Tobacco Use Status: Never used Tobacco e-Cigarette/Vaping Use: Never Used Second Hand Smoke Exposure: No service: No Current occupational status: employed 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 Cognitive needs: No Hearing needs: No Vision needs: No Assessment & Plan Assessment & Plan (1) Class 2 severe obesity with body mass index (BMI) of 35 to 39.9 with serious comorbidity: Code(s): E66.01 - Morbid (severe) obesity due to excess calories Category: Medical Plan: Wt: 129 Kg ( 09/2023 ) Est kcal needs as per MSJ: 3000 (40% carb, 30% protein/fat) Est fluid needs as per 25-30 ml/d: 3900 Est prot per day as per 1 g/kg bw: 155 Recommend fiber intake : 8-10 g per day and gradually increase to 25-28 g per day for women and 35-38 g for men or as tolerated Recommend sodium intake per day : less than 1500 mg less than 2000 mg Educated patient on: ( R = reviewed V = verbalizes understanding N/R = needs review N/A = not applicable Food sources of carbohydrate, adequate serving sizes and its role in various health conditions: R V N/R Differences between complex carbohydrates a simple carbohydrates, role of fiber in diet: R V N/R Lean protein sources of foods: R V NR Differences between types of fats and role in diet (mono on saturated fat fatty acids, saturated fatty acids, trans fats): R V N/R Food sources of sodium in salt and healthy modifications for heart health in kidney health: R V R/V empty calories: etoh abstinence : R Vitamins and minerals: R V N/R Healthy plate method concept: R V N/R Physical activity: Benefits a precaution: R V N/R Hypoglycemia protocol (rule of 15): R V N/R Dietary prevention of Hyperglycemia: R V R/V Patient Instructions: Practice mindful eating Incorporate foods rich in folic acid and thiamine Attend [facility] Coding Level of Care Code Nutr Indiv Intake (04920) Diagnoses Class 2 severe obesity with body mass index (BMI) of 35 to 39.9 with serious comorbidity E66.01 Time Spent (min) 30
[2023-10-13 12:33] VITALS: BMI 43.2
== END 2023-10-05 10:22 | disposition home or self-care (01) ==
PROVIDERS: Visit Provider Dietitian, Registered
DX: E66.01 Morbid (severe) obesity due to excess calories (principal)

== ENCOUNTER → 2023-10-05 09:40 | Outpatient (BNVA) | payer OTHER, SELFPAY | PROVIDERS: Visit Provider Dietitian, Registered | DX: E66.01 Morbid (severe) obesity due to excess calories (principal); Z68.41 Body mass index [BMI] 40.0-44.9, adult; Z71.3 Dietary counseling and surveillance | CPT/HCPCS: 97802 ==

== ENCOUNTER 2023-10-25 15:54 | Outpatient (AMB) | payer OTHER, SELFPAY ==
--- NOTE | 2023-10-25 17:20 | A.OFFPSYCH_ITS ---
Intake Intake Visit Reasons: consultation Allergies No Known Allergies Allergy (Verified 09/29/23 11:25) Medication List - Last Reconciled 10/25/23 by Emani Bryant APRN lamotrigine (Lamictal) 25 mg orally take 1 tab daily x 14 days then 2 tabs daily x 14 days then 3 tab daily x7 days then 4 tabs daily; 30 days HPI- Psychiatric Chief Complaint: consultation HPI Narrative: Pt referred for concerns re: ADHD. Pt reports that he wonders about depression and ADHD he has been intermittently drinking heavily. he feels stuck; he east noticed a decline his mental health since the Pandemic. He had break up of important relationship during that time; he has gained weight from drinking and isolation since then and feels stuck. He broke his foot one year ago which made things even more difficult since he could not be as active as usual. His last use of ETOH was 14 days ago; he denies any withdrawal symptoms. Pt reports stopping etoh use was effort to lose weight. Pt describes periods of time when he has felt great, had high energy, taken more risks, been more irritable and even quite angry. He then has periods of feeling quite depressed and bereft. he feels anxious and tense. He reports periods of low energy. He can easily lose his temper. He says he can be mean and spiteful. He denies SI or HI. He does reports feeling of passive SI every day but says he would never hurt himself. He talked about his home having paranormal activity but did state he is not sure he believes in it. 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 Past Psychiatric History: no IPLOC, no PHP or IOP Subjective Subjective Subjective Medication Compliance: Yes Side effects from medications: No Review of Systems Medical Review of Systems: unchanged Mental Status Exam Mental Status Exam Patient Appearance: Appropriate Patient Orientation: Person, Place, Time and Situation Level of Consciousness: Awake, Appropriate and Alert Patient Behavior: Talkative, Posturing (some not towards this instructional writer), Cooperative, Restless, Anxious and Distractible Mood Description: Labile Affect Description: Labile Patient Cognition Impaired: No Ability to Follow Directions: Good Speech Pattern: Excessive, Animated and Pressured Memory Description: Intact Hallucinations: Auditory (hears phone ringing or other noises in house ) Delusions: Grandiose (possible) Thought Process: Racing and Illogical Thought Content: positive for Loose Associations Judgement: Fair Assessment and Plan Assessment & Plan (1) Bipolar II disorder: Status: Acute Code(s): F31.81 - Bipolar II disorder (2) Alcohol use disorder: Status: Acute Code(s): F10.90 - Alcohol use, unspecified, uncomplicated (3) Generalized anxiety disorder: Status: Acute Code(s): F41.1 - Generalized anxiety disorder Plan Discussed diagnostic impressions and patient open to and agree probbale Bipolar mood disorder discussed etoh withdrawal symptoms and safety issues discussed medications to support abstinence discussed how abstinence can support mood stability and lessen mood swings and depresson start lamictal 25mg titration as below Medications: New lamotrigine (Lamictal) 25 mg orally take 1 tab daily x 14 days then 2 tabs daily x 14 days then 3 tab daily x7 days then 4 tabs daily; 90 tabs 0RF 30 days Counseling and coordination of Care Pt. Self Management counseling: Exercise, Mod caffeine/ETOH intake, Nutrition education and improvement, Sleep hygiene and General coping skills Medication management counseling: Effectiveness, Side effects, Dosing range, Duration, Drug interaction and Adherence Diagnosis and Prognosis Counseling: Accuracy of diagnosis, Prognosis over time, Impact of diagnosis on life functions, Impact of family relationship, Problematic behaviors secondary to diagnosis and Adequacy of current interventions Details: I spent 75 minutes reviewing the record, seeing the patient and documenting in the medical record. Counseling provided to the patient/caregiver as outlined below. Addressed patient/caregiver concerns regarding current medication regime including effective adherence. Addressed patient/caregiver concerns regarding diagnosis and prognosis including accuracy of diagnosis, prognosis over time, impact of diagnosis. Addressed patient/caregiver concerns regarding impact of recent stressors. FORMERLY [facility], [facility] Medical History (Updated 11/01/23 @ 14:51 by Emani Bryant APRN) Fracture of fifth metatarsal bone of right foot Dystrophic nail Alcohol use disorder Generalized anxiety disorder Class 2 severe obesity with body mass index (BMI) of 35 to 39.9 with serious comorbidity Surgical History (Updated 09/29/23 @ 09:49 by POLLY Cardona) History of foot surgery Social History (Updated 09/29/23 @ 09:50 by Shimarlia Kwade, RMA) Housing: House (rented) Alcohol intake: current Alcohol intake frequency: a few times a week Patient Tobacco Use Status: Never used Tobacco e-Cigarette/Vaping Use: Never Used Second Hand Smoke Exposure: No service: No Current occupational status: employed 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 Cognitive needs: No Hearing needs: No Vision needs: No Social History: single lives alone; work [employer] Substance History: ETOH abuse episodic; hx of 4 DUIs Trauma History: father distant, brother bullied, pt reports being bullied his whole life for sexual preference Coding Level of Care Code Psych Diag Eval w/Med (07217) Diagnoses Bipolar II disorder F31.81 Alcohol use disorder F10.90 Generalized anxiety disorder F41.1
== END 2023-10-25 17:20 | disposition home or self-care (01) ==
LOC: HO.HOP 15:54
PROVIDERS: PCP Internal Medicine; Visit Provider Clinical Nurse Specialist Psychiatric/Mental Health
DX: F31.81 Bipolar II disorder (principal); F10.90 Alcohol use, unspecified, uncomplicated; F41.1 Generalized anxiety disorder
CPT/HCPCS: 90792

== ENCOUNTER → 2023-10-25 15:54 | Outpatient (BNVA) | payer OTHER, SELFPAY | PROVIDERS: PCP Internal Medicine; Visit Provider Clinical Nurse Specialist Psychiatric/Mental Health | DX: F31.81 Bipolar II disorder (principal); F41.1 Generalized anxiety disorder; F10.90 Alcohol use, unspecified, uncomplicated | CPT/HCPCS: 90792 ==

== ENCOUNTER 2023-10-30 10:18 | Outpatient (REF) | payer OTHER, SELFPAY ==
[2023-10-30 12:03] LABS: Hematocrit 46.2 % (42.0-52.0); Hemoglobin 15.7 g/dl (14.0-18.0); Mean Corpuscular Hemoglobin 29.8 pg (27.0-33.0); Mean Corpuscular Volume 87.7 fL (80.0-98.0); Mean Platelet Volume 10.1 fL (9.4-12.4); Platelet Count 270 X10*3/uL (160-400); Red Blood Count 5.27 X10*6/uL (4.60-5.80); Red Cell Distribution Width 12.6 % (11.0-16.0); White Blood Count 7.3 X10*3/uL (4.8-10.8)
[2023-10-30 12:42] LABS: Alanine Aminotransferase 70 U/L (0-40); Albumin Level 4.8 g/dL (3.5-5.0); Alkaline Phosphatase 71 U/L (39-117); Anion Gap 13 (12-20); Aspartate Amino Transferase 44 U/L (5-37); Bilirubin Direct 0.2 mg/dL (0.0-0.5); Bilirubin Total 0.7 mg/dL (0.0-1.0); Blood Urea Nitrogen 13 mg/dL (9-16); Calcium 9.5 mg/dL (8.4-10.2); Carbon Dioxide 25 mmol/L (22-29); Chloride 105 mmol/L (96-108); Cholesterol 215 mg/dL (<200); Estimated Glomerular Filt Rate > 60; Glucose Random 84 mg/dL (60-115); HDL Cholesterol 33 mg/dL (>40); LDL Cholesterol Calculated 151 mg/dL (<100); Sodium 139 mmol/L (135-145); Total Protein 8.1 g/dL (6.5-8.0); Triglycerides 157 mg/dL (<150)
== END 2023-10-30 10:19 | disposition home or self-care (01) ==
LOC: HO.LAB 10:18
PROVIDERS: PCP Internal Medicine; Visit Provider Internal Medicine
DX: E66.01 Morbid (severe) obesity due to excess calories (principal)
CPT/HCPCS: 36415; 80048; 80061; 80076; 84443; 85027

== ENCOUNTER 2023-11-03 09:51 | Outpatient (AMB) | payer OTHER, SELFPAY ==
--- NOTE | 2023-11-03 09:57 | A.OFFPC_ITS ---
Vital Signs 11/03/23 10:00 Height 5 ft 8 in Weight 262 lb BMI 39.8 BP 130/70 Blood Pressure Location Lt brachial Position Sitting Pulse 86 Pulse Source Pulse Oximeter Pulse Oximetry (%) 97 Oxygen Delivery Method Room Air Intake Visit Reasons: 1mth f/u Intake Note: Patient is here to follow up on Obesity, Alcoholic, MACIEL and lab results. Manufacturing Plant Controller Required: No Coat Tailor: Not Required per policy Accompanied by: Self / Same As Patient Allergies No Known Allergies Allergy (Verified 11/03/23 10:51) Medication List - Last Reconciled 11/03/23 by Walter Reyes MD lamotrigine (Lamictal) 25 mg orally take 1 tab daily x 14 days then 2 tabs daily x 14 days then 3 tab daily x7 days then 4 tabs daily; 30 days Tobacco use date assessed: 11/03/23 Dental Screening Dental Screen Date: 09/29/23 HPI 1mth f/u HPI Details 38-year-old male presents to the office to discuss his chronic medical conditions. Since last office visit, patient has been seen by the psychiatrist. He has been diagnosed with general anxiety disorder, bipolar disorder and alcohol abuse. He has been started on Lamictal and the dosage is being slowly increased. Patient reports that since starting the medication he feels less on the edge. He has stopped drinking alcohol in the past 30 days. Patient is on Wegovy from elsewhere. He did not find the dietitian consult of any use. [facility] Medical History (Updated 11/03/23 @ 11:00 by Walter Reyes MD) Hyperlipidemia, unspecified Fracture of fifth metatarsal bone of right foot Dystrophic nail Alcohol use disorder Generalized anxiety disorder Class 2 severe obesity with body mass index (BMI) of 35 to 39.9 with serious comorbidity Surgical History History of foot surgery Social History Housing: House (rented) Alcohol intake: current Alcohol intake frequency: a few times a week Patient Tobacco Use Status: Never used Tobacco e-Cigarette/Vaping Use: Never Used Second Hand Smoke Exposure: No service: No Current occupational status: employed 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 Cognitive needs: No Hearing needs: No Vision needs: No Questionnaire Thrive Questionnaire Date Thrive assessed: 09/29/23 MACIEL-7 AMB Questionnaire MACIEL-7 Date MACIEL - 7 assessed: 09/29/23 Source: Developed by Drs. Gatito Fabian, Daily Devries, Chandler Chiang and colleagues, with an educational charo from [employer]. Physical exam (Primary Care) Vital Signs: Last Vital Signs Pulse 86 11/03/23 10:00 BP 130/70 11/03/23 10:00 Pulse Ox 97 11/03/23 10:00 Oxygen Delivery Method Room Air 11/03/23 10:00 Care Plan Goal for BP management: Blood pressure is in range. BMI result Body Mass Index 39.8 BMI Assessment/Plan discussion: High (Continue Wegovy.) BMI High, discussed plan: lifestyle, weight reduction and dietary Tobacco/Smoking Status: Tobacco use Status Tobacco use date assessed 11/03/23 11/03/23 10:10 Patient Tobacco Use Status Never used Tobacco 11/03/23 10:10 e-Cigarette/Vaping Use Never Used 11/03/23 10:10 Thrive Assessment: Date of Thrive Assessment Date Thrive assessed 09/29/23 11/03/23 10:10 Const General: cooperative and healthy appearing Nutritional Appearance: well nourished Orientation/consciousness: patient oriented x3 Limitations: no limitations HENMT Head: Yes normal to inspection Eyes General: appearance normal, both eyes and all related structures Neck Neck: Yes normal visual inspection Chest Chest palpation & inspection: normal palpation of entire chest wall Resp Effort & Inspection: normal respiratory effort Neuro General: patient oriented x3 Assessment and Plan Assessment & Plan (1) Alcohol use disorder: Code(s): F10.90 - Alcohol use, unspecified, uncomplicated Plan: Patient was congratulated for his abstinence from alcohol. Currently he is requesting no further help. (2) Generalized anxiety disorder: Code(s): F41.1 - Generalized anxiety disorder Plan: On the Lamictal, this condition is also improving. (3) Bipolar II disorder: Code(s): F31.81 - Bipolar II disorder Plan: New diagnosis for the patient. We will continue to follow-up with the psych iatrist. (4) Class 2 severe obesity with body mass index (BMI) of 35 to 39.9 with serious comorbidity: Code(s): E66.01 - Morbid (severe) obesity due to excess calories Plan: Patient would like to continue with the Wegovy. Blood work results were discussed with him. He has mild increase in liver function tests could be due to his alcohol use. (5) Hyperlipidemia, unspecified: Code(s): E78.5 - Hyperlipidemia, unspecified Plan: LDL is mildly elevated. Patient is declining medications at this stage. Coding Level of Care Code Est Pt Level 4 (72429) Complex EM visit Add On G2211 Diagnoses Alcohol use disorder F10.90 Generalized anxiety disorder F41.1 Bipolar II disorder F31.81 Class 2 severe obesity with body mass index (BMI) of 35 to 39.9 with serious comorbidity E66.01 Hyperlipidemia, unspecified E78.5
[2023-11-03 10:00] VITALS: BP 130/70; PULSE 86; O2SAT 97; BMI 39.8
== END 2023-11-03 10:53 | disposition home or self-care (01) ==
PROVIDERS: Visit Provider Internal Medicine
DX: E78.5 Hyperlipidemia, unspecified (principal); F31.81 Bipolar II disorder; E66.01 Morbid (severe) obesity due to excess calories; Z68.39 Body mass index [BMI] 39.0-39.9, adult; F10.90 Alcohol use, unspecified, uncomplicated; F41.1 Generalized anxiety disorder
CPT/HCPCS: 99214

== ENCOUNTER 2023-11-11 14:39 | Outpatient (AMB) | payer OTHER, SELFPAY ==
[2023-11-11 14:49] VITALS: BMI 39.0
--- NOTE | 2023-11-11 14:49 | A.OFFVIS_ITS ---
VS Expanded 11/11/23 14:49 Height 5 ft 8 in Weight 256 lb 9.889 oz BMI 39.0 Intake Visit Reasons: OBESITY/CONFIRMED Allergies No Known Allergies Allergy (Verified 11/03/23 10:51) Nutrition Presentation Details: Pt presents for MNT f/u for obesity. Pt reports feeling great. Reports having had no alcohol for a month, with no cravings, attributes this to the use of weight loss med; Wegovy. Pt reports PCP is is aware. Typical meal intake 9-10 am B: bagel /cream cheese dunking donuts, 1 energy drink/d 2pm: rice/beans/chicken /nick meal, water 7pm : Sand/vegetable, or pizza/veg, rest meal physical activity: currently not interested BS Monitoring Most Recent Diabetes Results: Cholesterol 215 mg/dL (<200) H 10/30/23 HDL Cholesterol 33 mg/dL (>40) L 10/30/23 Triglycerides 157 mg/dL (<150) H 10/30/23 Creatinine 1.05 mg/dL (0.5-1.4) 10/30/23 Blood Urea Nitrogen 13 mg/dL (9-16) 10/30/23 Sodium 139 mmol/L (135-145) 10/30/23 Potassium 4.0 mmol/L (3.3-5.1) 10/30/23 Chloride 105 mmol/L (96-108) 10/30/23 Carbon Dioxide 25 mmol/L (22-29) 10/30/23 Calcium 9.5 mg/dL (8.4-10.2) 10/30/23 AST 44 U/L (5-37) H 10/30/23 ALT 70 U/L (0-40) H 10/30/23 Total Protein 8.1 g/dL (6.5-8.0) H 10/30/23 Albumin 4.8 g/dL (3.5-5.0) 10/30/23 [facility] Medical History (Updated 11/03/23 @ 11:00 by Walter Reyes MD) Hyperlipidemia, unspecified Fracture of fifth metatarsal bone of right foot Dystrophic nail Alcohol use disorder Generalized anxiety disorder Class 2 severe obesity with body mass index (BMI) of 35 to 39.9 with serious comorbidity Surgical History History of foot surgery Social History Housing: House (rented) Alcohol intake: current Alcohol intake frequency: a few times a week Patient Tobacco Use Status: Never used Tobacco e-Cigarette/Vaping Use: Never Used Second Hand Smoke Exposure: No service: No Current occupational status: employed 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 Cognitive needs: No Hearing needs: No Vision needs: No Assessment & Plan Assessment & Plan (1) Class 2 severe obesity with body mass index (BMI) of 35 to 39.9 with serious comorbidity: Code(s): E66.01 - Morbid (severe) obesity due to excess calories Category: Medical Plan: Wt: 129 Kg ( 09/2023 ), 116.3 kg (10/2023)(Pt reports 27 lbs weight loss is related to having started Wegovy a month ago ) Est kcal needs as per MSJ: 3000 (40% carb, 30% protein/fat) Est fluid needs as per 25-30 ml/d: 3900 Est prot per day as per 1 g/kg bw: 155 Recommend fiber intake : 8-10 g per day and gradually increase to 25-28 g per day for women and 35-38 g for men or as tolerated Recommend sodium intake per day : less than 1500 mg less than 2000 mg Educated patient on: ( R = reviewed V = verbalizes understanding N/R = needs review N/A = not applicable * Food sources of carbohydrate, adequate serving sizes and its role in various health conditions: R V N/R * Differences between complex carbohydrates a simple carbohydrates, role of fiber in diet: R V N/R * Lean protein sources of foods: R V NR * Differences between types of fats and role in diet (mono on saturated fat fatty acids, saturated fatty acids, trans fats): R V N/R * Food sources of sodium in salt and healthy modifications for heart health in kidney health: R V R/V * empty calories: etoh abstinence : R, V * Vitamins and minerals: R V N/R * Healthy plate method concept: R V N/R * Physical activity: Benefits a precaution: R -relationship of physical activity, muscle mass, weight loss Patient Instructions: I encourage you to walk 30 min to 60 min , once a week Continue working on following healthy plate method Coding Level of Care Code Nutr Indiv Subseq ([id number]) Diagnoses Class 2 severe obesity with body mass index (BMI) of 35 to 39.9 with serious comorbidity E66.01 Time Spent (min) 30
== END 2023-11-11 15:21 | disposition home or self-care (01) ==
PROVIDERS: Visit Provider Dietitian, Registered
DX: E66.01 Morbid (severe) obesity due to excess calories (principal)

== ENCOUNTER → 2023-11-11 14:39 | Outpatient (BNVA) | payer OTHER, SELFPAY | PROVIDERS: Visit Provider Dietitian, Registered | DX: E66.01 Morbid (severe) obesity due to excess calories (principal); Z68.39 Body mass index [BMI] 39.0-39.9, adult; Z71.3 Dietary counseling and surveillance | CPT/HCPCS: 97803 ==

== ENCOUNTER 2023-11-30 16:22 | Outpatient (AMB) | payer OTHER, SELFPAY ==
--- NOTE | 2023-11-30 16:29 | A.OFFPSYCH_ITS ---
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 no SI or HI. he is socializing more. he feel less self loathing. No side effects from lamictal. No rash; no medical changes. Past Psychiatric History: no IPLOC, no PHP or IOP Subjective Subjective Subjective Medication Compliance: Yes Side effects from medications: No Review of Systems Medical Review of Systems: unchanged Mental Status Exam Mental Status Exam Patient Appearance: Well Grooomed and Appropriate Patient Orientation: Person, Place, Time and Situation Level of Consciousness: Awake Patient Behavior: Appropriate and Talkative Mood Description: Happy (elevated) Affect Description: Expansive Patient Cognition Impaired: No Ability to Follow Directions: Good Speech Pattern: Clear, Rapid and Excessive Memory Description: Intact Hallucinations: None Delusions: Not Present Thought Process: Intact and Goal Oriented Thought Content: positive for Intact and positive for Goal Oriented Judgement: Fair Assessment and Plan Assessment & Plan (1) Bipolar II disorder: Status: Acute Code(s): F31.81 - Bipolar II disorder Plan Increase lamictal to 150mg daily in am continue to reduce alcohol in take return in 4 weeks Medications: New lamotrigine (Lamictal) 150 mg PO DAILY 90 tabs 1RF Discontinued lamotrigine (Lamictal) Discontinued Reason: Doctor's Order 25 mg orally take 1 tab daily x 14 days then 2 tabs daily x 14 days then 3 tab daily x7 days then 4 tabs daily; 30 days 90 tabs 0RF Counseling and coordination of Care Pt. Self Management counseling: Exercise, Maintenance-social rhythm, Mod caffeine/ETOH intake, Sleep hygiene and General coping skills Medication management counseling: Effectiveness, Side effects, Dosing range, Duration, Drug interaction and Adherence Diagnosis and Prognosis Counseling: Accuracy of diagnosis, Prognosis over time, Impact of diagnosis on life functions, Impact of family relationship, Problematic behaviors secondary to diagnosis and Adequacy of current interventions Details: I spent 45 minutes reviewing the record, seeing the patient and documenting in the medical record. Counseling provided to the patient/caregiver as outlined below. Addressed patient/caregiver concerns regarding current medication regime including effective adherence. Addressed patient/caregiver concerns regarding diagnosis and prognosis including accuracy of diagnosis, prognosis over time, impact of diagnosis. Addressed patient/caregiver concerns regarding impact of recent stressors. [facility] Medical History (Updated 11/03/23 @ 11:00 by Walter Reyes MD) Hyperlipidemia, unspecified Fracture of fifth metatarsal bone of right foot Dystrophic nail Alcohol use disorder Generalized anxiety disorder Class 2 severe obesity with body mass index (BMI) of 35 to 39.9 with serious comorbidity Surgical History History of foot surgery Social History Housing: House (rented) Alcohol intake: current Alcohol intake frequency: a few times a week Patient Tobacco Use Status: Never used Tobacco e-Cigarette/Vaping Use: Never Used Second Hand Smoke Exposure: No service: No Current occupational status: employed 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 Cognitive needs: No Hearing needs: No Vision needs: No Social History: single lives alone; work [employer] Substance History: ETOH abuse episodic; hx of 4 DUIs Trauma History: father distant, brother bullied, pt reports being bullied his whole life for sexual preference Coding Level of Care Code Est Pt Level 5 (18714) Diagnoses Bipolar II disorder F31.81
== END 2023-11-30 17:07 | disposition home or self-care (01) ==
LOC: HO.HOP 16:22
PROVIDERS: Visit Provider Clinical Nurse Specialist Psychiatric/Mental Health
DX: F31.81 Bipolar II disorder (principal)
CPT/HCPCS: 99215

== ENCOUNTER → 2023-11-30 16:22 | Outpatient (BNVA) | payer OTHER, SELFPAY | PROVIDERS: Visit Provider Clinical Nurse Specialist Psychiatric/Mental Health ==

== ENCOUNTER 2023-12-28 16:42 | Outpatient (AMB) | payer OTHER, SELFPAY ==
--- NOTE | 2023-12-28 16:50 | MHC.OFFVISPS ---
Intake Intake Visit Reasons: Depression Director Cardiology Required: No Allergies No Known Allergies Allergy (Verified 11/03/23 10:51) Medication List - Last Reconciled 12/28/23 by Emani Bryant APRN lamotrigine (Lamictal) 150 mg PO DAILY HPI- Psychiatric Chief Complaint: Depression HPI Narrative: pts mood much improved; tolerating 150 mg lamictal daily- no side effects including no rah; pt anger and rage reduced; continues with some pressured speech and conflicts with others but he is managing well. Less depression, less hopelessness. work stress has increased as his office was moved twice. he had one episode of heavy ETOH use since last vist but says nothing bad happened because of it. No SI no HI; reports continue trouble with memeory, concentration and focus; discussed pros and cons of stimulants and alternative treatments for adult ADHD Past Psychiatric History: no IPLOC, no PHP or IOP Subjective Subjective Subjective Medication Compliance: Yes Side effects from medications: No Review of Systems Medical Review of Systems: unchanged Mental Status Exam Mental Status Exam Patient Appearance: Appropriate Patient Orientation: Person, Place, Time and Situation Level of Consciousness: Awake, Appropriate and Alert Patient Behavior: Appropriate, Talkative, Cooperative, Restless and Good Eye Contact Mood Description: Happy, Anxious and Expansive Affect Description: Happy and Expansive Patient Cognition Impaired: No Ability to Follow Directions: Good Speech Pattern: Rambling, Rapid, Excessive and Loud Memory Description: Intact Hallucinations: None Delusions: Not Present Thought Process: Racing Thought Content: positive for Intact and positive for Loose Associations Judgement: Fair Assessment and Plan Assessment & Plan (1) Bipolar II disorder: Status: Acute Code(s): F31.81 - Bipolar II disorder (2) Alcohol use disorder: Status: Acute Code(s): F10.90 - Alcohol use, unspecified, uncomplicated (3) Attention and concentration deficit: Status: Acute Code(s): R41.840 - Attention and concentration deficit Plan increase lamictal to 200mg qam add wellbutrin 75 mg one in am daily reduce or stop alcohol use Medications: New bupropion HCl administer 6 hours apart 75 mg PO DAILY 30 tabs 1RF lamotrigine (Lamictal) 200 mg PO DAILY 30 tabs 1RF bupropion HCl 75 mg PO DAILY@0730 30 tabs 2RF Discontinued lamotrigine (Lamictal) Discontinued Reason: Doctor's Order 150 mg PO DAILY 90 tabs 1RF Counseling and coordination of Care Pt. Self Management counseling: Maintenance-social rhythm, Mindfulness, Mod caffeine/ETOH intake, Sleep hygiene, Behavior activation and General coping skills Medication management counseling: Effectiveness, Side effects, Dosing range, Duration, Drug interaction and Adherence Diagnosis and Prognosis Counseling: Accuracy of diagnosis, Prognosis over time, Impact of diagnosis on life functions, Impact of family relationship, Problematic behaviors secondary to diagnosis and Adequacy of current interventions Details: I spent 45 minutes reviewing the record, seeing the patient and documenting in the medical record. Counseling provided to the patient/caregiver as outlined below. Addressed patient/caregiver concerns regarding current medication regime including effective adherence. Addressed patient/caregiver concerns regarding diagnosis and prognosis including accuracy of diagnosis, prognosis over time, impact of diagnosis. Addressed patient/caregiver concerns regarding impact of recent stressors. [facility] Medical History (Updated 12/30/23 @ 13:14 by Emani Bryant APRN) Hyperlipidemia, unspecified Fracture of fifth metatarsal bone of right foot Dystrophic nail Alcohol use disorder Generalized anxiety disorder Class 2 severe obesity with body mass index (BMI) of 35 to 39.9 with serious comorbidity Surgical History History of foot surgery Social History Housing: House (rented) Alcohol intake: current Alcohol intake frequency: a few times a week Patient Tobacco Use Status: Never used Tobacco e-Cigarette/Vaping Use: Never Used Second Hand Smoke Exposure: No service: No Current occupational status: employed 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 Cognitive needs: No Hearing needs: No Vision needs: No Social History: single lives alone; work [employer] Substance History: ETOH abuse episodic; hx of 4 DUIs Trauma History: father distant, brother bullied, pt reports being bullied his whole life for sexual preference Coding Level of Care Code Est Pt Level 5 (24069) Diagnoses Bipolar II disorder F31.81 Alcohol use disorder F10.90 Attention and concentration deficit R41.840
== END 2023-12-28 17:27 | disposition home or self-care (01) ==
LOC: HO.HOP 16:42
PROVIDERS: Visit Provider Clinical Nurse Specialist Psychiatric/Mental Health
DX: F31.81 Bipolar II disorder (principal); F10.90 Alcohol use, unspecified, uncomplicated; R41.840 Attention and concentration deficit
CPT/HCPCS: 99215

== ENCOUNTER → 2023-12-28 16:42 | Outpatient (BNVA) | payer OTHER, SELFPAY | PROVIDERS: Visit Provider Clinical Nurse Specialist Psychiatric/Mental Health ==

== ENCOUNTER 2024-02-07 16:29 | Outpatient (AMB) | payer BC, SELFPAY ==
--- NOTE | 2024-02-07 16:31 | A.OFFPSYCH_ITS ---
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 he is tolerating the Wellbutrin but has not seen much change in mood or focus. his PHQ-9 equals 7 his MACIEL-7 equals 6. he is using alcohol much less frequently he has had 1 episode of drinking more than planned. He is much less labile. He is not as irritable. Past Psychiatric History: no IPLOC, no PHP or IOP Subjective Subjective Subjective Medication Compliance: Yes Side effects from medications: No Review of Systems Medical Review of Systems: unchanged Mental Status Exam Mental Status Exam Patient Appearance: Well Grooomed and Appropriate Patient Orientation: Person, Place, Time and Situation Level of Consciousness: Awake and Appropriate Patient Behavior: Appropriate and Cooperative Mood Description: Happy and Sad Affect Description: Happy Patient Cognition Impaired: No Ability to Follow Directions: Good Speech Pattern: Clear and Animated Memory Description: Intact Hallucinations: None Delusions: Not Present Thought Process: Intact Thought Content: positive for Intact and positive for Loose Associations Judgement: Good Assessment and Plan Assessment & Plan (1) Attention and concentration deficit: Status: Acute Code(s): R41.840 - Attention and concentration deficit (2) Bipolar II disorder: Status: Acute Code(s): F31.81 - Bipolar II disorder Plan wellbutrin 75 mg bid 7 am and 3 pm lamictal 200mg at am and 50mg at 3pm return in 6-8 weeks Medications: New lamotrigine (Lamictal) 50 mg (2 x 25 mg) PO DAILY@1700 90 days 180 tabs 0RF Changed From bupropion HCl 75 mg PO DAILY@0730 30 tabs 2RF To bupropion HCl 75 mg PO BID 60 tabs 1RF Counseling and coordination of Care Pt. Self Management counseling: Maintenance-social rhythm, Mod caffeine/ETOH intake, General coping skills and Problem solving Medication management counseling: Effectiveness, Side effects, Dosing range, Duration, Drug interaction and Adherence Diagnosis and Prognosis Counseling: Accuracy of diagnosis, Prognosis over time, Impact of diagnosis on life functions, Impact of family relationship, Problematic behaviors secondary to diagnosis and Adequacy of current interventions Details: I spent [] minutes reviewing the record, seeing the patient and documenting in the medical record. Counseling provided to the patient/caregiver as outlined below. Addressed patient/caregiver concerns regarding current medication regime including effective adherence. Addressed patient/caregiver concerns regarding diagnosis and prognosis including accuracy of diagnosis, prognosis over time, impact of diagnosis. Addressed patient/caregiver concerns regarding impact of recent stressors. [facility] Medical History (Updated 12/30/23 @ 13:14 by Emani Bryant APRN) Hyperlipidemia, unspecified Fracture of fifth metatarsal bone of right foot Dystrophic nail Alcohol use disorder Generalized anxiety disorder Class 2 severe obesity with body mass index (BMI) of 35 to 39.9 with serious comorbidity Surgical History History of foot surgery Social History Housing: House (rented) Alcohol intake: current Alcohol intake frequency: a few times a week Patient Tobacco Use Status: Never used Tobacco e-Cigarette/Vaping Use: Never Used Second Hand Smoke Exposure: No service: No Current occupational status: employed 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 Cognitive needs: No Hearing needs: No Vision needs: No Social History: single lives alone; work [employer] Substance History: ETOH abuse episodic; hx of 4 DUIs Trauma History: father distant, brother bullied, pt reports being bullied his whole life for sexual preference Coding Level of Care Code Est Pt Level 4 (68739) Diagnoses Attention and concentration deficit R41.840 Bipolar II disorder F31.81
== END 2024-02-07 17:07 | disposition home or self-care (01) ==
LOC: HO.HOP 16:29
PROVIDERS: PCP Internal Medicine; Visit Provider Clinical Nurse Specialist Psychiatric/Mental Health
DX: F31.81 Bipolar II disorder (principal); R41.840 Attention and concentration deficit
CPT/HCPCS: 99214

== ENCOUNTER → 2024-02-07 16:29 | Outpatient (BNVA) | payer BC, SELFPAY | PROVIDERS: PCP Internal Medicine; Visit Provider Clinical Nurse Specialist Psychiatric/Mental Health ==

== ENCOUNTER 2024-04-24 16:35 | Outpatient (AMB) | payer BC, SELFPAY ==
--- NOTE | 2024-04-24 16:46 | A.OFFPSYCH_ITS ---
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 Prt has no side effects including no rash. pt continues to use etoh but more mofderately; has follow up with PCP in may and will get LFTS checked then. Pt continues to lose weight with effort. No SI or HI Past Psychiatric History: no IPLOC, no PHP or IOP Subjective Subjective Subjective Medication Compliance: Yes Side effects from medications: No Review of Systems Medical Review of Systems: unchanged Mental Status Exam Mental Status Exam Patient Appearance: Well Grooomed and Appropriate Patient Orientation: Person, Place, Time and Situation Level of Consciousness: Awake, Appropriate and Alert Patient Behavior: Appropriate and Cooperative Mood Description: Appropriate and Expansive Affect Description: Appropriate and Expansive Patient Cognition Impaired: No Ability to Follow Directions: Good Speech Pattern: Clear and Excessive Memory Description: Intact Hallucinations: None Delusions: Not Present Thought Process: Intact Thought Content: positive for Intact Judgement: Good Assessment and Plan Assessment & Plan (1) Attention and concentration deficit: Status: Acute Code(s): R41.840 - Attention and concentration deficit (2) Bipolar II disorder: Status: Acute Code(s): F31.81 - Bipolar II disorder Plan continue lamictal 200mg daily continue wellbutrin 75mg BID Medications: Refilled lamotrigine (Lamictal) 200 mg PO DAILY 90 tabs 2RF bupropion HCl 75 mg PO BID 60 tabs 2RF Discontinued lamotrigine (Lamictal) Discontinued Reason: Doctor's Order 50 mg (2 x 25 mg) PO DAILY@1700 90 days 180 tabs 0RF Counseling and coordination of Care Pt. Self Management counseling: Mod caffeine/ETOH intake, Sleep hygiene, Behavior activation and Problem solving Medication management counseling: Effectiveness, Side effects, Dosing range, Duration, Drug interaction and Adherence Diagnosis and Prognosis Counseling: Accuracy of diagnosis, Prognosis over time, Impact of diagnosis on life functions, Impact of family relationship, Problematic behaviors secondary to diagnosis and Adequacy of current interventions Details: I spent 45 minutes reviewing the record, seeing the patient and documenting in the medical record. Counseling provided to the patient/caregiver as outlined below. Addressed patient/caregiver concerns regarding current medication regime including effective adherence. Addressed patient/caregiver concerns regarding diagnosis and prognosis including accuracy of diagnosis, prognosis over time, impact of diagnosis. Addressed patient/caregiver concerns regarding impact of recent stressors. [facility] Medical History (Updated 12/30/23 @ 13:14 by Emani Bryant APRN) Hyperlipidemia, unspecified Fracture of fifth metatarsal bone of right foot Dystrophic nail Alcohol use disorder Generalized anxiety disorder Class 2 severe obesity with body mass index (BMI) of 35 to 39.9 with serious comorbidity Surgical History History of foot surgery Social History Housing: House (rented) Alcohol intake: current Alcohol intake frequency: a few times a week Patient Tobacco Use Status: Never used Tobacco e-Cigarette/Vaping Use: Never Used Second Hand Smoke Exposure: No service: No Current occupational status: employed 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 Cognitive needs: No Hearing needs: No Vision needs: No Social History: single lives alone; work [employer] Substance History: ETOH abuse episodic; hx of 4 DUIs Trauma History: father distant, brother bullied, pt reports being bullied his whole life for sexual preference Coding Level of Care Code Est Pt Level 5 (66095) Diagnoses Attention and concentration deficit R41.840 Bipolar II disorder F31.81
== END 2024-04-24 18:19 | disposition home or self-care (01) ==
LOC: HO.HOP 16:35
PROVIDERS: PCP Internal Medicine; Visit Provider Clinical Nurse Specialist Psychiatric/Mental Health
DX: F31.81 Bipolar II disorder (principal); R41.840 Attention and concentration deficit
CPT/HCPCS: 99215

== ENCOUNTER 2024-05-25 10:06 | Outpatient (AMB) | payer BC, SELFPAY ==
--- NOTE | 2024-05-25 10:31 | MHC.PC.OV ---
Vital Signs 05/25/24 10:33 Height 5 ft 8 in Weight 201 lb 4 oz BMI 30.6 BP 110/78 Blood Pressure Location Lt brachial Position Sitting Pulse 81 Pulse Source Pulse Oximeter Temp 96.9 F Temp Source Skin Pulse Oximetry (%) 98 Oxygen Delivery Method Room Air Intake Visit Reasons: 6mth f/u Intake Note: Patient is here to follow up on HLD, Bipolar, Obesity. Retail Marketing Coordinator Required: No Administrative Clerk: Not Required per policy Accompanied by: Self / Same As Patient Allergies No Known Allergies Allergy (Verified 05/25/24 10:32) Tobacco use date assessed: 05/25/24 Dental Screening Dental Screen Date: 05/25/24 Did you have a dental visit in the last 12 months?: No Did you have a dental problem in the last 6 months where you did not have access to dental care?: No Was dental information given to patient?: No HPI 6mth f/u HPI Details 39-year-old male presents to the office to discuss his chronic medical conditions. Patient has lost significant weight on Wegovy. He also has decreased his alcohol consumption significantly. Continues to take his medications for depression. Continues to work and able to do all activities of daily living. He is at baseline state of health. 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 Cognitive needs: No Hearing needs: No Vision needs: No Questionnaire PHQ-9 Over the last 2 weeks, how often have you been bothered by any of the following problems? 1. Little interest or pleasure in doing things: not at all 2. Feeling down, depressed, or hopeless: several days (currently on medication) 3. Trouble falling or staying asleep, or sleeping too much: not at all 4. Feeling tired or having little energy: not at all 5. Poor appetite or overeating: not at all 6. Feeling bad about yourself - or that you are a failure or have let yourself or your family down: not at all 7. Trouble concentrating on things, such as reading the newspaper or watching television: not at all 8. Moving or speaking so slowly that other people could have noticed. Or the opposite - being so fidgety or restless that you have been moving around a lot more than usual: not at all 9. Thoughts that you would be better off or of hurting yourself in some way: not at all Total score: 1 Depression Screening Interpretation: Negative Depression Screening Done: Yes Source: Developed by Drs. Gatito Fabian, Daily Devries, Chandler Chiang and colleagues, with an educational charo from [employer]. Thrive Questionnaire Date Thrive assessed: 05/25/24 I am a: Patient What is your living situation today?: I have a steady place to live Within the past 12 months, did the food you bought not last and you didn't have the money to get more?: Never true Within the past 12 months, did you worry whether your food would run out before you got money to buy more?: Never true Do you have trouble paying for medicines?: No Do you have trouble getting transportation to medical appointments?: No Do you have trouble paying your heating and electricity bill?: No Do you have trouble taking care of your child, family member or friend?: No Do you have trouble with day-to-day activities such as bathing, preparing meals, shopping, managing finances, etc.?: No Are you currently unemployed and looking for a job?: No Are you interested in more education?: No Please select the resources that you would like help with: None Currently or been in a relationship where the following occur: No concerns reported THRIVE Score: 0 AUDIT C Alcohol Use Questionnaire (AUDIT-C) 1. How often do you have a drink containing alcohol?: 2-4 times a month 2. How many drinks containing alcohol do you have on a typical day when you are drinking?: 1 or 2 Total Score: 2 MACIEL-7 AMB Questionnaire MACIEL-7 Date MACIEL - 7 assessed: 05/25/24 Feeling nervous, anxious, or on edge: 1 = Several days (currently on medication) Not being able to stop or control worryin = Not at all Worrying too much about different things: 0 = Not at all Trouble relaxin = Not at all Being so restless that it is hard to sit still: 0 = Not at all Becoming easily annoyed or irritable: 0 = Not at all Feeling afraid as if something awful might happen: 0 = Not at all Total MACIEL-7 score (0-4 normal; 5-9 mild; 10-14 moderate; 15-21 severe): 1 Source: Developed by Drs. Gatito Fabian, Daily Devries, Chandler Chiang and colleagues, with an educational charo from [employer]. Physical exam (Primary Care) Vital Signs: Last Vital Signs Temp 96.9 F 05/25/24 10:33 Pulse 81 05/25/24 10:33 BP 110/78 05/25/24 10:33 Pulse Ox 98 05/25/24 10:33 Oxygen Delivery Method Room Air 05/25/24 10:33 BMI result Body Mass Index 30.6 Patient has reduced his weight significantly. Tobacco/Smoking Status: Tobacco use Status Tobacco use date assessed 05/25/24 05/25/24 10:39 Patient Tobacco Use Status Never used Tobacco 05/25/24 10:39 e-Cigarette/Vaping Use Never Used 05/25/24 10:39 PHQ-9: PHQ-9 Score PHQ-9: Total score 1 05/25/24 10:39 Depression Screening Interpretation: Negative Thrive Assessment: Date of Thrive Assessment Date Thrive assessed 05/25/24 05/25/24 10:39 Currently or been in a relationship where the following occur: No concerns reported Const General: cooperative and healthy appearing Nutritional Appearance: well nourished Orientation/consciousness: patient oriented x3 Limitations: no limitations HENMT Head: Yes normal to inspection Eyes General: appearance normal, both eyes and all related structures Neck Neck: Yes normal visual inspection Chest Chest palpation & inspection: normal palpation of entire chest wall Resp Effort & Inspection: normal respiratory effort Neuro General: patient oriented x3 Coding Level of Care Code Est Pt Level 4 (03767) Complex EM visit Add On [id number] Diagnoses Generalized anxiety disorder F41.1 Class 2 severe obesity with body mass index (BMI) of 35 to 39.9 with serious comorbidity E66.01 Hyperlipidemia, unspecified E78.5 Assessment & Plan Assessment & Plan (1) Generalized anxiety disorder: Code(s): F41.1 - Generalized anxiety disorder Category: Medical Plan: Continue current medications. (2) Class 2 severe obesity with body mass index (BMI) of 35 to 39.9 with serious comorbidity: Code(s): E66.01 - Morbid (severe) obesity due to excess calories Category: Medical Plan: This condition has resolved. He has BMI has significantly reduced to around 30 (3) Hyperlipidemia, unspecified: Code(s): E78.5 - Hyperlipidemia, unspecified Category: Medical Plan: Blood work has been ordered. Based on the results statin will be ordered. Orders: Orders Complete Blood Count no Diff Today F41.1 - Generalized anxiety disorder Basic Metabolic Panel Today F41.1 - Generalized anxiety disorder Lipid Panel Today F41.1 - Generalized anxiety disorder Liver Panel Today F41.1 - Generalized anxiety disorder Thyroid Stimulating Hormone Today F41.1 - Generalized anxiety disorder
[2024-05-25 10:33] VITALS: BP 110/78; PULSE 81; TEMP 36.1; O2SAT 98; BMI 30.6
== END 2024-05-25 11:28 | disposition home or self-care (01) ==
LOC: HO.HMCH 10:06
PROVIDERS: PCP Internal Medicine; Visit Provider Internal Medicine
DX: E78.5 Hyperlipidemia, unspecified (principal); F41.1 Generalized anxiety disorder; E66.01 Morbid (severe) obesity due to excess calories; Z68.30 Body mass index [BMI] 30.0-30.9, adult

== ENCOUNTER → 2024-05-25 10:06 | Outpatient (BNVA) | payer BC, SELFPAY | PROVIDERS: PCP Internal Medicine; Visit Provider Internal Medicine ==

== ENCOUNTER 2024-06-09 15:01 | Outpatient (AMB) | payer BC, SELFPAY ==
--- NOTE | 2024-06-09 15:13 | MHC.OFFVISPS ---
Intake Intake Visit Reasons: f/u consultation Wedding Day Coordinator Required: No Allergies No Known Allergies Allergy (Verified 05/25/24 10:32) Medication List - Last Reconciled 06/09/24 by Emani Bryant APRN bupropion HCl 75 mg PO BID lamotrigine (Lamictal) 200 mg PO DAILY HPI- Psychiatric Chief Complaint: f/u consultation HPI Narrative: mood elevated; logical and coherent; no SI or HI; reduced alcohol use; disrupted sleep 2-4 times a week comllianr with medications. no side effects; PHQ9= 8 and GAD7= 4 Past Psychiatric History: no IPLOC, no PHP or IOP Subjective Subjective Subjective Medication Compliance: Yes Side effects from medications: No Review of Systems Medical Review of Systems: unchanged Mental Status Exam Mental Status Exam Patient Appearance: Well Grooomed Patient Orientation: Person, Place, Time and Situation Level of Consciousness: Awake, Appropriate and Alert Patient Behavior: Appropriate and Cooperative Mood Description: Happy and Elated Affect Description: Happy and Elated (joking more elevated ) Patient Cognition Impaired: No Ability to Follow Directions: Good Speech Pattern: Clear, Excessive and Pressured Memory Description: Intact Hallucinations: None Delusions: Not Present Thought Process: Intact and Racing Thought Content: positive for Intact and positive for Racing Judgement: Fair Assessment and Plan Assessment & Plan (1) Bipolar II disorder: Status: Acute Code(s): F31.81 - Bipolar II disorder (2) Generalized anxiety disorder: Status: Acute Code(s): F41.1 - Generalized anxiety disorder Plan advised to moderate alcohol use continue lamictal and wellbutrin discussed next appt being last and transitioning back to PCP continue to encourage therapy Medications: Refilled lamotrigine (Lamictal) 200 mg PO DAILY 90 tabs 2RF bupropion HCl 75 mg PO BID 180 tabs 0RF Counseling and coordination of Care Pt. Self Management counseling: Maintenance-social rhythm, Mod caffeine/ETOH intake, Sleep hygiene and General coping skills Medication management counseling: Effectiveness, Side effects, Dosing range, Duration, Drug interaction and Adherence Diagnosis and Prognosis Counseling: Accuracy of diagnosis, Prognosis over time, Impact of diagnosis on life functions, Problematic behaviors secondary to diagnosis and Adequacy of current interventions Details: I spent 35 minutes reviewing the record, seeing the patient and documenting in the medical record. Counseling provided to the patient/caregiver as outlined below. Addressed patient/caregiver concerns regarding current medication regime including effective adherence. Addressed patient/caregiver concerns regarding diagnosis and prognosis including accuracy of diagnosis, prognosis over time, impact of diagnosis. Addressed patient/caregiver concerns regarding impact of recent stressors. 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 Cognitive needs: No Hearing needs: No Vision needs: No Social History: single lives alone; work [employer] Substance History: ETOH abuse episodic; hx of 4 DUIs Trauma History: father distant, brother bullied, pt reports being bullied his whole life for sexual preference Coding Level of Care Code Est Pt Level 4 (52603) Diagnoses Bipolar II disorder F31.81 Generalized anxiety disorder F41.1
== END 2024-06-09 16:53 | disposition home or self-care (01) ==
LOC: HO.HOP 15:01
PROVIDERS: PCP Internal Medicine; Visit Provider Clinical Nurse Specialist Psychiatric/Mental Health
DX: F31.81 Bipolar II disorder (principal); F41.1 Generalized anxiety disorder
CPT/HCPCS: 99214

== ENCOUNTER 2024-06-10 08:17 | Outpatient (REF) | payer BC, SELFPAY ==
[2024-06-10 09:06] LABS: Hematocrit 46.6 % (42.0-52.0); Hemoglobin 16.1 g/dl (14.0-18.0); Mean Corpuscular HGB Conc 34.5 g/dl (31.0-36.0); Mean Corpuscular Hemoglobin 28.9 pg (27.0-33.0); Mean Corpuscular Volume 83.7 fL (80.0-98.0); Mean Platelet Volume 9.2 fL (9.4-12.4); Platelet Count 277 X10*3/uL (160-400); Red Blood Count 5.57 X10*6/uL (4.60-5.80); Red Cell Distribution Width 13.2 % (11.0-16.0); White Blood Count 7.7 X10*3/uL (4.8-10.8)
[2024-06-10 10:04] LABS: Alanine Aminotransferase 24 U/L (0-40); Albumin Level 4.6 g/dL (3.5-5.0); Alkaline Phosphatase 82 U/L (39-117); Anion Gap 14 (12-20); Aspartate Amino Transferase 21 U/L (5-37); Bilirubin Direct 0.4 mg/dL (0.0-0.5); Blood Urea Nitrogen 12 mg/dL (9-16); Calcium 9.8 mg/dL (8.4-10.2); Carbon Dioxide 27 mmol/L (22-29); Chloride 105 mmol/L (96-108); Cholesterol 189 mg/dL (<200); Estimated Glomerular Filt Rate > 60; Glucose Random 79 mg/dL (60-115); HDL Cholesterol 43 mg/dL (>40); LDL Cholesterol Calculated 125 mg/dL (<100); Potassium 4.2 mmol/L (3.3-5.1); Sodium 142 mmol/L (135-145); Total Protein 7.9 g/dL (6.5-8.0); Triglycerides 107 mg/dL (<150)
[2024-06-10 10:09] LABS: Thyroid Stimulating Hormone 0.86 uIU/mL (0.32-4.0)
== END 2024-06-10 08:18 | disposition home or self-care (01) ==
LOC: HO.LAB 08:17
PROVIDERS: PCP Internal Medicine; Visit Provider Internal Medicine
DX: F41.1 Generalized anxiety disorder (principal); M79.673 Pain in unspecified foot
CPT/HCPCS: 36415; 80048; 80061; 80076; 84443; 85027

== ENCOUNTER 2024-07-20 15:57 | Outpatient (AMB) | payer BC, SELFPAY ==
--- NOTE | 2024-07-20 16:05 | A.OFFPSYCH_ITS ---
Intake Intake Visit Reasons: f/u consultation Policy Service Coordinator Required: No Allergies No Known Allergies Allergy (Verified 08/31/24 15:11) Medication List - Last Reconciled 07/20/24 by Emani Bryant APRN bupropion HCl 75 mg PO BID lamotrigine (Lamictal) 200 mg PO DAILY HPI- Psychiatric Chief Complaint: f/u consultation HPI Narrative: Pts mood worsened; pt drinking more alcohol more often; he has gained 10#. PHQ9= 11 down from 18 at admission and GAD7= 10 down from 18 at admission. Pt denies SI or HI. Pt feeling more depressed and low energy, low mood, lack of interest in activities. He is more worried and anxious. Past Psychiatric History: no IPLOC, no PHP or IOP Subjective Subjective Subjective Medication Compliance: Yes Side effects from medications: No Review of Systems Medical Review of Systems: unchanged Mental Status Exam Mental Status Exam Patient Appearance: Well Grooomed Patient Orientation: Person, Place, Time and Situation Level of Consciousness: Awake and Appropriate Patient Behavior: Appropriate and Cooperative Mood Description: Depressed, Anxious and Labile Affect Description: Depressed, Anxious and Labile Patient Cognition Impaired: No Ability to Follow Directions: Good Speech Pattern: Clear, Animated and Pressured Memory Description: Intact Hallucinations: None Delusions: Not Present Thought Process: Intact and Goal Oriented Thought Content: positive for Intact and positive for Goal Oriented Judgement: Good Assessment and Plan Assessment & Plan (1) Attention and concentration deficit: Status: Acute Code(s): R41.840 - Attention and concentration deficit (2) Bipolar II disorder: Status: Acute Code(s): F31.81 - Bipolar II disorder (3) Alcohol use disorder: Status: Acute Code(s): F10.90 - Alcohol use, unspecified, uncomplicated Plan continue wellbutrin 75mg BID for ADHD continue lamictal 200mg daily for bipolar disorer trial of naltrexone for etoh cravings strongly encourage psychotherapy Medications: New naltrexone 50 mg PO DAILY 90 tabs 2RF naltrexone 50 mg PO DAILY@1700 30 tabs 2RF Refilled lamotrigine (Lamictal) 200 mg PO DAILY 90 tabs 2RF bupropion HCl 75 mg PO BID 180 tabs 1RF Discontinued bupropion HCl Discontinued Reason: Doctor's Order 75 mg PO BID 180 tabs 0RF Counseling and coordination of Care Pt. Self Management counseling: Maintenance-social rhythm, Med illness tx adherence, Mod caffeine/ETOH intake, Nutrition education and improvement, Sleep hygiene, Behavior activation and General coping skills Medication management counseling: Effectiveness, Side effects, Dosing range, Du ration, Drug interaction and Adherence Diagnosis and Prognosis Counseling: Accuracy of diagnosis, Prognosis over time, Impact of diagnosis on life functions, Problematic behaviors secondary to diagnosis and Adequacy of current interventions Details: I spent 45 minutes reviewing the record, seeing the patient and documenting in the medical record. Counseling provided to the patient/caregiver as outlined below. Addressed patient/caregiver concerns regarding current medication regime including effective adherence. Addressed patient/caregiver concerns regarding diagnosis and prognosis including accuracy of diagnosis, prognosis over time, impact of diagnosis. Addressed patient/caregiver concerns regarding impact of recent stressors. 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 Cognitive needs: No Hearing needs: No Vision needs: No Social History: single lives alone; work [employer] Substance History: ETOH abuse episodic; hx of 4 DUIs Trauma History: father distant, brother bullied, pt reports being bullied his whole life for sexual preference Coding Level of Care Code Est Pt Level 4 (86117) Therapy 30m w/E&M (63385) Diagnoses Attention and concentration deficit R41.840 Bipolar II disorder F31.81 Alcohol use disorder F10.90
== END 2024-07-20 17:11 | disposition home or self-care (01) ==
LOC: HO.HOP 15:57
PROVIDERS: PCP Internal Medicine; Visit Provider Clinical Nurse Specialist Psychiatric/Mental Health
DX: F31.81 Bipolar II disorder (principal); F10.90 Alcohol use, unspecified, uncomplicated; R41.840 Attention and concentration deficit
CPT/HCPCS: 90833; 99214

== ENCOUNTER → 2024-07-20 15:57 | Outpatient (BNVA) | payer BC, SELFPAY | PROVIDERS: PCP Internal Medicine; Visit Provider Clinical Nurse Specialist Psychiatric/Mental Health ==

== ENCOUNTER 2024-08-31 14:47 | Outpatient (REF) | payer BC, SELFPAY ==
[2024-09-01 08:30] LABS: Syphilis Screen Nonreactive (Nonreactive)
[2024-09-01 08:46] LABS: HIV AB/AG Nonreactive (Nonreactive); HIV Num 1 0.06 S/CO (0.00-0.99)
[2024-09-01 09:03] LABS: CT PCR NOT DETECTED (Not Detect.); NG PCR NOT DETECTED (Not Detect.)
== END 2024-08-31 14:48 | disposition home or self-care (01) ==
LOC: HO.LAB 14:47
PROVIDERS: PCP Internal Medicine; Visit Provider Internal Medicine
DX: Z11.9 Encounter for screening for infectious and parasitic diseases, unspecified (principal)
CPT/HCPCS: 36415; 86780; 87389; 87491; 87591

== ENCOUNTER 2024-08-31 14:47 | Outpatient (AMB) | payer BC, SELFPAY ==
--- NOTE | 2024-08-31 15:10 | A.OFFPC_ITS ---
Vital Signs 08/31/24 15:15 Height 5 ft 8 in Weight 222 lb 2 oz BMI 33.8 BP 130/82 Blood Pressure Location Lt brachial Position Sitting Pulse 68 Pulse Source Pulse Oximeter Temp 97.3 F Temp Source Temporal Artery Scan Pulse Oximetry (%) 97 Oxygen Delivery Method Room Air Intake Visit Reasons: 3mth f/u Intake Note: Patient is here to follow up on HLD. Wash House Worker Required: No Neuroradiologist: Not Required per policy Accompanied by: Self / Same As Patient Allergies No Known Allergies Allergy (Verified 08/31/24 15:11) Tobacco use date assessed: 08/31/24 Dental Screening Dental Screen Date: 05/25/24 [facility] Medical History Hyperlipidemia, unspecified Fracture of fifth metatarsal bone of right foot Dystrophic nail Alcohol use disorder Generalized anxiety disorder Class 2 severe obesity with body mass index (BMI) of 35 to 39.9 with serious comorbidity Surgical History History of foot surgery Social History Housing: House (rented) Alcohol intake: current Alcohol intake frequency: a few times a week Patient Tobacco Use Status: Never used Tobacco e-Cigarette/Vaping Use: Never Used Second Hand Smoke Exposure: No service: No Current occupational status: employed 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 Cognitive needs: No Hearing needs: No Vision needs: No Questionnaire PHQ-9 Over the last 2 weeks, how often have you been bothered by any of the following problems? 1. Little interest or pleasure in doing things: several days 2. Feeling down, depressed, or hopeless: not at all 3. Trouble falling or staying asleep, or sleeping too much: not at all 4. Feeling tired or having little energy: not at all 5. Poor appetite or overeating: not at all 6. Feeling bad about yourself - or that you are a failure or have let yourself or your family down: not at all 7. Trouble concentrating on things, such as reading the newspaper or watching television: not at all 8. Moving or speaking so slowly that other people could have noticed. Or the opposite - being so fidgety or restless that you have been moving around a lot more than usual: not at all 9. Thoughts that you would be better off or of hurting yourself in some way: not at all Total score: 1 Depression Screening Interpretation: Positive Depression Screening Done: Yes Source: Developed by Drs. Gatito Fabian, Daily Devries, Chandler Chiang and colleagues, with an educational charo from [employer]. Thrive Questionnaire Date Thrive assessed: 08/31/24 I am a: Patient What is your living situation today?: I have a steady place to live Within the past 12 months, did the food you bought not last and you didn't have the money to get more?: I choose not to answer this question Within the past 12 months, did you worry whether your food would run out before you got money to buy more?: I choose not to answer this question Do you have trouble paying for medicines?: I choose not to answer this question Do you have trouble getting transportation to medical appointments?: I choose not to answer this question Do you have trouble paying your heating and electricity bill?: I choose not to answer this question Do you have trouble taking care of your child, family member or friend?: I choose not to answer this question Do you have trouble with day-to-day activities such as bathing, preparing meals, shopping, managing finances, etc.?: I choose not to answer this question Are you currently unemployed and looking for a job?: I choose not to answer this question Are you interested in more education?: I choose not to answer this question Please select the resources that you would like help with: None Currently or been in a relationship where the following occur: I choose not to answer THRIVE Score: 0 AUDIT C Alcohol Use Questionnaire (AUDIT-C) 1. How often do you have a drink containing alcohol?: Monthly or less 2. How many drinks containing alcohol do you have on a typical day when you are drinking?: 1 or 2 Total Score: 1 MACIEL-7 AMB Questionnaire MACIEL-7 Date MACIEL - 7 assessed: 05/25/24 Source: Developed by Drs. Gatito Fabian, Daily Devries, Chandler schneider nd colleagues, with an educational charo from [employer]. Physical exam (Primary Care) Vital Signs: Last Vital Signs Temp 97.3 F 08/31/24 15:15 Pulse 68 08/31/24 15:15 BP 130/82 08/31/24 15:15 Pulse Ox 97 08/31/24 15:15 Oxygen Delivery Method Room Air 08/31/24 15:15 BMI result Body Mass Index 33.8 Tobacco/Smoking Status: Tobacco use Status Tobacco use date assessed 08/31/24 08/31/24 15:13 Patient Tobacco Use Status Never used Tobacco 08/31/24 15:13 e-Cigarette/Vaping Use Never Used 08/31/24 15:13 PHQ-9: PHQ-9 Score PHQ-9: Total score 1 08/31/24 15:13 Depression Screening Interpretation: Positive Thrive Assessment: Date of Thrive Assessment Date Thrive assessed 08/31/24 08/31/24 15:13 Currently or been in a relationship where the following occur: I choose not to answer Coding Level of Care Code Est Pt Level 4 (05532) Complex EM visit Add On [id number] Diagnoses Generalized anxiety disorder F41.1 Assessment & Plan Assessment & Plan (1) Generalized anxiety disorder: Code(s): F41.1 - Generalized anxiety disorder Category: Medical Plan: History of Present Illness The patient is a 39-year-old male presenting with issues related to weight management and alcohol use disorder. He has recently encountered a period of increased stress at work which disrupted his dietary and behavioral habits. Previously, the patient was taking semaglutide, which resulted in significant weight loss and reduced alcohol cravings. He discontinued semaglutide in April and maintained his weight until July when he experienced heightened stress, resulting in increased social alcohol consumption and late-night fast-food intake. The patient resumed semaglutide within the last week and noted immediate positive effects on his alcohol intake and eating habits. He has trialed naltrexone without success in reducing alcohol cravings. The patient expressed a preference for continuing semaglutide therapy due to its control over weight and alcohol use. He aims to explore ways to save on prescription costs by considering alternatives like compounded semaglutide. Social History - Employment: Working at the same place, reports increased stress. - Alcohol Use: Reports decreased alcohol cravings while on semaglutide; ineffective experience with naltrexone. - Exercise: Engages in a 4-mile walk around [facility]; describes as a fast walker. - Weight Management: Experienced weight gain following a period of stress; prefers semaglutide due to its weight loss benefits and reduction in alcohol cravings. Review of Systems - Psychiatric: Reports increased alcohol consumption with stress; Denies amnesia or severe intoxication. - Metabolism/Nutrition: Reports weight gain due to late-night eating; Reports successful weight management on semaglutide. - Musculoskeletal: Denies inability to walk due to a prior athletic lifestyle; limits running due to foot issues. Physical Exam General: Cooperative and healthy appearing Nutritional Appearance: Well nourished Orientation/consciousness: Patient oriented x3 Limitations: No limitations Head: Normal to inspection General: Appearance normal, both eyes and all related structures Neck: Normal visual inspection Chest: Normal palpation of entire chest wall Respiratory: Breathe in, breathe out, breathe in, breathe out, breathe in, breathe out, breathe in. ormal respiratory effort Neurology: Patient oriented x3 Results Plan 1. Alcohol Use Disorder - Continue semaglutide; discontinue naltrexone. - Consider acamprosate if cost issues arise with Wegovy. 2. Obesity - Restart semaglutide; engage in physical exercise. - Check insurance for Wegovy coverage. 3. Stress-Related Behavioral Changes - Implement stress management and lifestyle modifications. Discussion Notes We discussed the patient's experience with semaglutide and its positive impact on weight management and alcohol consumption reduction. The patient has resumed semaglutide at a starting dose of 1 mg, with plans to titrate upwards, citing its multifaceted benefits. We explored insurance coverage possibilities for Wegovy and cheaper alternatives such as compounded semaglutide. I advised on discontinuing naltrexone due to ineffectiveness. We also evaluated strategies for managing stress-induced behavioral changes, particularly focusing on maintaining regular physical activity and potentially considering acamprosate for alcohol use disorder if semaglutide becomes unaffordable. The patient is encouraged to actively pursue lifestyle changes that manage stress and enhance general wellness. Patient Instructions - Continue taking semaglutide as directed, starting at 1 mg. - Engage in regular 4-mile walks as part of your exercise routine. - Contact your insurance company about Wegovy coverage. - Discontinue naltrexone as previously discussed. - Practice stress management techniques to avoid alcohol and nighttime snacking. - If unable to afford semaglutide, discuss starting acamprosate with me. - Follow up with me if there are any changes in your condition or if you have questions about your treatment plan. Orders: Orders CT NG by PCR 08/31/24 Z11.9 - Encounter for screening for infectious and parasitic diseases, unspecified Syphilis Screen 08/31/24 Z11.9 - Encounter for screening for infectious and parasitic diseases, unspecified HIV Ab/Ag 08/31/24 Z11.9 - Encounter for screening for infectious and parasitic diseases, unspecified Medications: New semaglutide (weight loss) (Wegovy) 1 mg (0.5 mL) subcut Q7D 6.5 mL 1RF 90 days
[2024-08-31 15:15] VITALS: BP 130/82; PULSE 68; TEMP 36.3; O2SAT 97; BMI 33.8
== END 2024-08-31 15:56 | disposition home or self-care (01) ==
LOC: HO.HMCH 14:47
PROVIDERS: PCP Internal Medicine; Visit Provider Internal Medicine
DX: F41.1 Generalized anxiety disorder (principal)

== ENCOUNTER 2024-10-03 16:35 | Outpatient (AMB) | payer BC, SELFPAY ==
--- NOTE | 2024-10-03 16:40 | MHC.OFFVISPS ---
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 depression Passive SI with no plan or intent; discussed adding lithium; pt in agreement Past Psychiatric History: no IPLOC, no PHP or IOP Assessment and Plan Assessment & Plan (1) Bipolar II disorder: Status: Acute Code(s): F31.81 - Bipolar II disorder (2) Alcohol use disorder: Status: Acute Code(s): F10.90 - Alcohol use, unspecified, uncomplicated (3) Generalized anxiety disorder: Status: Acute Code(s): F41.1 - Generalized anxiety disorder Medications: New lithium carbonate ER 300 mg PO DAILY 30 tabs 0RF Refilled lamotrigine (Lamictal) 200 mg PO DAILY 90 tabs 2RF Discontinued naltrexone Discontinued Reason: Doctor's Order 50 mg PO DAILY 90 tabs 2RF bupropion HCl Discontinued Reason: Doctor's Order 75 mg PO BID 180 tabs 1RF Counseling and coordination of Care Medication management counseling: Effectiveness, Side effects, Dosing range, Duration, Drug interaction, Adherence and Other (importance of hydration) Diagnosis and Prognosis Counseling: Accuracy of diagnosis, Prognosis over time, Impact of diagnosis on life functions, Impact of family relationship, Problematic behaviors secondary to diagnosis and Adequacy of current interventions Details: I spent 40 minutes reviewing the record, seeing the patient and documenting in the medical record. Counseling provided to the patient/caregiver as outlined below. Addressed patient/caregiver concerns regarding current medication regime including effective adherence. Addressed patient/caregiver concerns regarding diagnosis and prognosis including accuracy of diagnosis, prognosis over time, impact of diagnosis. Addressed patient/caregiver concerns regarding impact of recent stressors. 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 Cognitive needs: No Hearing needs: No Vision needs: No Social History: single lives alone; work [employer] Substance History: ETOH abuse episodic; hx of 4 DUIs Trauma History: father distant, brother bullied, pt reports being bullied his whole life for sexual preference Coding Level of Care Code Est Pt Level 4 (38601) Diagnoses Bipolar II disorder F31.81 Alcohol use disorder F10.90 Generalized anxiety disorder F41.1
== END 2024-10-03 17:20 | disposition home or self-care (01) ==
LOC: HO.HOP 16:35
PROVIDERS: PCP Internal Medicine; Visit Provider Clinical Nurse Specialist Psychiatric/Mental Health
DX: F31.81 Bipolar II disorder (principal); F10.90 Alcohol use, unspecified, uncomplicated; F41.1 Generalized anxiety disorder
CPT/HCPCS: 99214

== ENCOUNTER 2024-10-19 16:29 | Outpatient (AMB) | payer BC, SELFPAY ==
--- NOTE | 2024-10-19 16:31 | A.OFFPSYCH_ITS ---
Intake Intake Visit Reasons: f/u consultation Chief Solution Architect Required: No Allergies No Known Allergies Allergy (Verified 08/31/24 15:11) Medication List - Last Reconciled 10/19/24 by Emani Bryant APRN doxycycline hyclate 100 mg PO BID 1 day lamotrigine (Lamictal) 200 mg PO DAILY lithium carbonate ER 300 mg PO DAILY semaglutide (weight loss) (Wegovy) 0.25 mg (0.125 mL) subcut Q7D 30 days HPI- Psychiatric Chief Complaint: f/u consultation HPI Narrative: pt here for follow up re: bipolar II mood symptoms, anxiety, concentration problems, and etoh abuse. Pt reports improvement since starting lithium ER 300mg daily. no side effects; pt on wegovy and report less binge eating and much less etoh use; his mood is improved; PHQ9=12 down from 20 and GAD7 =9 down from 15. He reports no rage/anger. He reports no SI or HI. Past Psychiatric History: no IPLOC, no PHP or IOP Subjective Subjective Subjective Medication Compliance: Yes Side effects from medications: No Review of Systems Medical Review of Systems: unchanged Mental Status Exam Mental Status Exam Patient Appearance: Well Grooomed Patient Orientation: Person, Place, Time and Situation Level of Consciousness: Awake and Appropriate Patient Behavior: Appropriate and Cooperative Mood Description: Cheerful and Anxious Affect Description: Cheerful and Anxious Patient Cognition Impaired: No Ability to Follow Directions: Good Speech Pattern: Clear, Appropriate and Animated Memory Description: Intact Hallucinations: None Delusions: Not Present Thought Process: Intact and Goal Oriented Thought Content: positive for Intact and positive for Goal Oriented Judgement: Good Assessment and Plan Assessment & Plan (1) Generalized anxiety disorder: Status: Acute Code(s): F41.1 - Generalized anxiety disorder (2) Bipolar II disorder: Status: Acute Code(s): F31.81 - Bipolar II disorder (3) Alcohol use disorder: Status: Acute Code(s): F10.90 - Alcohol use, unspecified, uncomplicated Plan continue lamictal 200mg daily increase lithium ER 45omg daily limit alcohol use retrun in 6-8 weeks Medications: New lithium carbonate ER 450 mg PO DAILY 90 tabs 0RF Discontinued lithium carbonate ER Discontinued Reason: Doctor's Order 300 mg PO DAILY 30 tabs 0RF Counseling and coordination of Care Medication management counseling: Effectiveness, Side effects, Dosing range, Duration, Drug interaction, Adherence and Other (importance of hydration) Diagnosis and Prognosis Counseling: Accuracy of diagnosis, Prognosis over time, Impact of diagnosis on life functions, Impact of family relationship, Problematic behaviors secondary to diagnosis and Adequacy of current interventions Details: I spent 40 minutes reviewing the record, seeing the patient and documenting in the medical record. Counseling provided to the patient/caregiver as outlined below. Addressed patient/caregiver concerns regarding current medication regime including effective adherence. Addressed patient/caregiver concerns regarding diagnosis and prognosis including accuracy of diagnosis, prognosis over time, impact of diagnosis. Addressed patient/caregiver concerns regarding impact of recent stressors. [facility] Medical History Hyperlipidemia, unspecified Fracture of fifth metatarsal bone of right foot Dystrophic nail Alcohol use disorder Generalized anxiety disorder Class 2 severe obesity with body mass index (BMI) of 35 to 39.9 with serious comorbidity Surgical History History of foot surgery Social History Housing: House (rented) Alcohol intake: current Alcohol intake frequency: a few times a week Patient Tobacco Use Status: Never used Tobacco e-Cigarette/Vaping Use: Never Used Second Hand Smoke Exposure: No service: No Current occupational status: employed 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 Cognitive needs: No Hearing needs: No Vision needs: No Social History: single lives alone; work [employer] Substance History: ETOH abuse episodic; hx of 4 DUIs Trauma History: father distant, brother bullied, pt reports being bullied his whole life for sexual preference Coding Level of Care Code Est Pt Level 4 (62603) Diagnoses Generalized anxiety disorder F41.1 Bipolar II disorder F31.81 Alcohol use disorder F10.90
== END 2024-10-19 16:57 | disposition home or self-care (01) ==
LOC: HO.HOP 16:29
PROVIDERS: PCP Internal Medicine; Visit Provider Clinical Nurse Specialist Psychiatric/Mental Health
DX: F41.1 Generalized anxiety disorder (principal); F31.81 Bipolar II disorder; F10.90 Alcohol use, unspecified, uncomplicated
CPT/HCPCS: 99214

== ENCOUNTER 2024-11-28 16:31 | Outpatient (AMB) | payer BC, SELFPAY ==
--- NOTE | 2024-11-28 16:37 | MHC.OFFVISPS ---
Intake Intake Visit Reasons: depression Chiller Operator Required: No Allergies No Known Allergies Allergy (Verified 08/31/24 15:11) Medication List - Last Reconciled 11/28/24 by Emani Bryant APRN doxycycline hyclate 100 mg PO BID 1 day lamotrigine (Lamictal) 200 mg PO DAILY lithium carbonate ER 450 mg PO DAILY semaglutide (weight loss) (Wegovy) 0.25 mg (0.5 mL) subcut QWEEK HPI- Psychiatric Chief Complaint: depression HPI Narrative: Pt here for follow up re: Bipolar DO, anxiety, and alcohol use. Pt depressed, anxious, irritbale. He is drinking more alcohol. Binge drinking every few days. He has had trouble getting the wegovy and when off it or on a low dose he is drinking more excessively. Pt does not want to go to alcohol treatmetn; he has been to 12 step meetings and did bnot like them. he is hesitantly open to smart recovery meetings. He has struggle with SI but no intention and no plan; He does not want to kill himself but he is very angry at his life circumstances. 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 He is single and not happy about it. He has been adherent with meds; no side effects. Past Psychiatric History: no IPLOC, no PHP or IOP Subjective Subjective Subjective Medication Compliance: Yes Side effects from medications: No Review of Systems Medical Review of Systems: unchanged Mental Status Exam Mental Status Exam Patient Appearance: Well Grooomed Patient Orientation: Person, Place, Time and Situation Level of Consciousness: Awake and Appropriate Patient Behavior: Appropriate and Cooperative Mood Description: Cheerful and Anxious Affect Description: Cheerful and Anxious Patient Cognition Impaired: No Ability to Follow Directions: Good Speech Pattern: Clear, Appropriate and Animated Memory Description: Intact Hallucinations: None Delusions: Not Present Thought Process: Intact and Goal Oriented Thought Content: positive for Intact and positive for Goal Oriented Judgement: Good Assessment and Plan Assessment & Plan (1) Generalized anxiety disorder: Status: Acute Code(s): F41.1 - Generalized anxiety disorder (2) Bipolar II disorder: Status: Acute Code(s): F31.81 - Bipolar II disorder (3) Alcohol use disorder: Status: Acute Code(s): F10.90 - Alcohol use, unspecified, uncomplicated Plan continue lamictal 200mg daily increase lithium ER 900mg daily limit alcohol use explore and consider [employer] groups restart vit B 50 complex. return in 3-4 weeks Medications: Changed From lithium carbonate ER 450 mg PO DAILY 90 tabs 0RF To lithium carbonate ER 900 mg (2 x 450 mg) PO DAILY 180 tabs 1RF Counseling and coordination of Care Pt. Self Management counseling: Maintenance-social rhythm, Mod caffeine/ETOH intake and Nutrition education and improvement Medication management counseling: Effectiveness, Side effects, Dosing range, Duration, Drug interaction, Adherence and Other (importance of hydration) Diagnosis and Prognosis Counseling: Accuracy of diagnosis, Prognosis over time, Impact of diagnosis on life functions, Impact of family relationship, Problematic behaviors secondary to diagnosis and Adequacy of current interventions Details: I spent 45 minutes reviewing the record, seeing the patient and documenting in the medical record. Counseling provided to the patient/caregiver as outlined below. Addressed patient/caregiver concerns regarding current medication regime including effective adherence. Addressed patient/caregiver concerns regarding diagnosis and prognosis including accuracy of diagnosis, prognosis over time, impact of diagnosis. Addressed patient/caregiver concerns regarding impact of recent stressors. 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 Cognitive needs: No Hearing needs: No Vision needs: No Social History: single lives alone; work [employer] Substance History: ETOH abuse episodic; hx of 4 DUIs Trauma History: father distant, brother bullied, pt reports being bullied his whole life for sexual preference Coding Level of Care Code Est Pt Level 5 (00839) Diagnoses Generalized anxiety disorder F41.1 Bipolar II disorder F31.81 Alcohol use disorder F10.90
== END 2024-11-28 16:48 | disposition home or self-care (01) ==
LOC: HO.HOP 16:31
PROVIDERS: PCP Internal Medicine; Visit Provider Clinical Nurse Specialist Psychiatric/Mental Health
DX: F31.81 Bipolar II disorder (principal); F41.1 Generalized anxiety disorder; F10.90 Alcohol use, unspecified, uncomplicated
CPT/HCPCS: 99215

== ENCOUNTER 2024-12-26 17:19 | Outpatient (AMB) | payer BC, SELFPAY ==
--- NOTE | 2024-12-26 16:44 | MHC.OFFVISPS ---
Intake Intake Visit Reasons: depression News Content Specialist Required: No Allergies No Known Allergies Allergy (Verified 08/31/24 15:11) Medication List - Last Reconciled 12/26/24 by Emani Bryant APRN doxycycline hyclate 100 mg PO BID 1 day lamotrigine (Lamictal) 200 mg PO DAILY lithium carbonate ER 900 mg (2 x 450 mg) PO DAILY semaglutide (weight loss) (Wegovy) 0.25 mg (0.5 mL) subcut QWEEK HPI- Psychiatric Chief Complaint: depression HPI Narrative: Pt here for follow up re: Bipolar DO, anxiety, and alcohol use. Pt depressed and anxious. He is drinking more alcohol. Binge drinking every few days. He refuses referral to detox or inpatient treatment; he declines PHP; He is resistant to seeing a therapist. He is struggling with SI but no intention and no plan;He reports he will not act on SI. He says does not want to kill himself and does not want to but is sad and angry at his life circumstances. 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 He has been officially laid from work since last Wednesday. He is single and not happy about it. He has been adherent with meds; no side effects. Past Psychiatric History: no IPLOC, no PHP or IOP Subjective Subjective Subjective Medication Compliance: Yes Side effects from medications: No Review of Systems Medical Review of Systems: unchanged Mental Status Exam Mental Status Exam Patient Appearance: Well Grooomed Patient Orientation: Person, Place, Time and Situation Level of Consciousness: Awake and Appropriate Patient Behavior: Appropriate and Cooperative Mood Description: Cheerful and Anxious Affect Description: Cheerful and Anxious Patient Cognition Impaired: No Ability to Follow Directions: Good Speech Pattern: Clear, Appropriate and Animated Memory Description: Intact Hallucinations: None Delusions: Not Present Thought Process: Intact and Goal Oriented Thought Content: positive for Intact, positive for Goal Oriented and positive for Suicidal Ideation (passive ideation denies plan or intent ) Judgement: Fair Assessment and Plan Assessment & Plan (1) Generalized anxiety disorder: Status: Acute Code(s): F41.1 - Generalized anxiety disorder (2) Bipolar II disorder: Status: Acute Code(s): F31.81 - Bipolar II disorder (3) Alcohol use disorder: Status: Acute Code(s): F10.90 - Alcohol use, unspecified, uncomplicated Plan continue lamictal 200mg daily increase lithium ER 900mg daily labs ordered limit alcohol use explore and consider [facility] groups strongly encourage therapy restart vit B 50 complex. return in 3 weeks Counseling and coordination of Care Pt. Self Management counseling: Maintenance-social rhythm, Mod caffeine/ETOH intake and Nutrition education and improvement Medication management counseling: Effectiveness, Side effects, Dosing range, Duration, Drug interaction, Adherence and Other (importance of hydration) Diagnosis and Prognosis Counseling: Accuracy of diagnosis, Prognosis over time, Impact of diagnosis on life functions, Impact of family relationship, Problematic behaviors secondary to diagnosis and Adequacy of current interventions Details: I spent 20 minutes reviewing the record, seeing the patient and documenting in the medical record. Counseling provided to the patient/caregiver as outlined below. Addressed patient/caregiver concerns regarding current medication regime including effective adherence. Addressed patient/caregiver concerns regarding diagnosis and prognosis including accuracy of diagnosis, prognosis over time, impact of diagnosis. Addressed patient/caregiver concerns regarding impact of recent stressors. [facility] Medical History Hyperlipidemia, unspecified Fracture of fifth metatarsal bone of right foot Dystrophic nail Alcohol use disorder Generalized anxiety disorder Class 2 severe obesity with body mass index (BMI) of 35 to 39.9 with serious comorbidity Surgical History History of foot surgery Social History Housing: House (rented) Alcohol intake: current Alcohol intake frequency: a few times a week Patient Tobacco Use Status: Never used Tobacco e-Cigarette/Vaping Use: Never Used Second Hand Smoke Exposure: No service: No Current occupational status: employed 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 Cognitive needs: No Hearing needs: No Vision needs: No Social History: single lives alone; work [employer] Substance History: ETOH abuse episodic; hx of 4 DUIs Trauma History: father distant, brother bullied, pt reports being bullied his whole life for sexual preference Coding Level of Care Code Est Pt Level 3 (61097) Diagnoses Generalized anxiety disorder F41.1 Bipolar II disorder F31.81 Alcohol use disorder F10.90
== END 2024-12-26 17:19 | disposition home or self-care (01) ==
LOC: HO.HOP 17:19
PROVIDERS: PCP Internal Medicine; Visit Provider Clinical Nurse Specialist Psychiatric/Mental Health
DX: F41.1 Generalized anxiety disorder (principal); F31.81 Bipolar II disorder; F10.90 Alcohol use, unspecified, uncomplicated
CPT/HCPCS: 99213

== ENCOUNTER 2025-03-21 15:49 | Outpatient (AMB) | payer OTHER, SELFPAY ==
--- NOTE | 2025-03-21 15:53 | A.OFFPC_ITS ---
Vital Signs 03/21/25 15:54 Height 5 ft 8 in Weight 242 lb 8 oz BMI 36.9 BP 132/70 Blood Pressure Location Lt brachial Position Sitting Pulse 85 Pulse Source Pulse Oximeter Temp 97.1 F Temp Source Temporal Artery Scan Pulse Oximetry (%) 97 Oxygen Delivery Method Room Air Intake Visit Reasons: 6 month f/u Intake Note: Patient is here to follow up on HLD, ADHD. Philosophy Instructor Required: No Buttermaker: Not Required per policy Accompanied by: Self / Same As Patient Allergies No Known Allergies Allergy (Verified 03/21/25 15:54) Tobacco use date assessed: 03/21/25 Dental Screening Dental Screen Date: 05/25/24 HPI HPI Comments History of Present Illness Details History of Present Illness - The patient is a 40 year old individua l presenting for follow-up for weight management and alcohol use disorder. - The last visit was in August for issues r elated to weight and alcohol use. - The patient previously took semaglutid e, which helped with weight management and reduced alcohol cravings, but was discontinued due to an increase in cost from approximately $200-$300 to $600 per month. - An increase in work-related stress dis rupted dietary and behavioral habits, and the patient reports a 40-pound weight gain. - Regarding alcohol use, the patient not es an increase in drinking and confirms that a prior trial of naltrexone was not helpful. - The patient is prescribed Lamictal and lithium by a psychiatrist. - However, the patient has been off lith ium for over a month due to a loss of insurance after the patient's business closed, but plans to restart it tonight. - Blood work from May showed normal kidney and liver functions, with cholesterol noted to be slightly low. Social History - Alcohol Use: The patient reports incre ased alcohol consumption and is very interested in cessation. - Employment: The patient's business mayte sed, and the patient is now employed at [employer]. - Insurance: The patient lost previous i nsurance and now has Blue Cross Blue Shield through the new employer. - Housing: The patient resides in [facility]. - Recreational Activities: The patient h tickets to the [place] [employer]. Results - Labs: Blood work from May was rev iewed, showing normal kidney and liver functions, and cholesterol was noted to be a little low. [facility] Medical History Hyperlipidemia, unspecified Fracture of fifth metatarsal bone of right foot Dystrophic nail Alcohol use disorder Generalized anxiety disorder Class 2 severe obesity with body mass index (BMI) of 35 to 39.9 with serious comorbidity Surgical History History of foot surgery Social History (Updated 03/21/25 @ 16:01 by POLLY Cardona) Housing: House (rented) Alcohol intake: current Alcohol intake frequency: a few times a week Patient Tobacco Use Status: Never used Tobacco e-Cigarette/Vaping Use: Never Used Second Hand Smoke Exposure: No service: No Current occupational status: employed 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 Cognitive needs: No Hearing needs: No Vision needs: No Questionnaire Thrive Questionnaire Date Thrive assessed: 08/31/24 I am a: Patient What is your living situation today?: I have a steady place to live Within the past 12 months, did the food you bought not last and you didn't have the money to get more?: I choose not to answer this question Within the past 12 months, did you worry whether your food would run out before you got money to buy more?: I choose not to answer this question Do you have trouble paying for medicines?: I choose not to answer this question Do you have trouble getting transportation to medical appointments?: I choose not to answer this question Do you have trouble paying your heating and electricity bill?: I choose not to answer this question Do you have trouble taking care of your child, family member or friend?: I choose not to answer this question Do you have trouble with day-to-day activities such as bathing, preparing meals, shopping, managing finances, etc.?: I choose not to answer this question Are you currently unemployed and looking for a job?: I choose not to answer this question Are you interested in more education?: I choose not to answer this question Please select the resources that you would like help with: None Currently or been in a relationship where the following occur: I choose not to answer THRIVE Score: 0 AUDIT C Alcohol Use Questionnaire (AUDIT-C) 3. How often do you have six or more drinks on one occasion?: Monthly Total Score: 2 MACIEL-7 AMB Questionnaire MACIEL-7 Date MACIEL - 7 assessed: 05/25/24 Feeling nervous, anxious, or on edge: 3 = Nearly every day Not being able to stop or control worryin = More than half the days Worrying too much about different things: 2 = More than half the days Trouble relaxin = More than half the days Being so restless that it is hard to sit still: 0 = Not at all Becoming easily annoyed or irritable: 2 = More than half the days Feeling afraid as if something awful might happen: 1 = Several days Total MACIEL-7 score (0-4 normal; 5-9 mild; 10-14 moderate; 15-21 severe): 12 Source: Developed by Drs. Gatito Fabian, Daily Devries, Chandler Chiang and colleagues, with an educational charo from [employer]. Review of Systems Narrative Review of Systems - General: Denies pain. Physical exam (Primary Care) Vital Signs: Last Vital Signs Temp 97.1 F 03/21/25 15:54 Pulse 85 03/21/25 15:54 BP 132/70 03/21/25 15:54 Pulse Ox 97 03/21/25 15:54 Oxygen Delivery Method Room Air 03/21/25 15:54 BMI result Body Mass Index 36.9 Tobacco/Smoking Status: Tobacco use Status Tobacco use date assessed 03/21/25 03/21/25 16:02 Patient Tobacco Use Status Never used Tobacco 03/21/25 16:02 e-Cigarette/Vaping Use Never Used 03/21/25 16:02 Thrive Assessment: Date of Thrive Assessment Date Thrive assessed 08/31/24 03/21/25 16:02 Currently or been in a relationship where the following occur: I choose not to answer Narrative Physical Exam General: Cooperative and healthy appearing Nutritional Appearance: Well nourished Orientation/consciousness: Patient oriented x3 Limitations: No limitations Head: Normal to inspection General: Appearance normal, both eyes and all related structures Neck: Normal visual inspection Chest: Normal palpation of entire chest wall Respiratory: Normal respiratory effort Neurology: Patient oriented x3 Coding Level of Care Code Est Pt Level 4 (01852) Add On Problem Visit Only Diagnoses Alcohol use disorder F10.90 Assessment & Plan Assessment & Plan (1) Alcohol use disorder: Code(s): F10.90 - Alcohol use, unspecified, uncomplicated Category: Medical Plan Plan - An appointment will be scheduled with a substance use disorder specialist in [place] for management of alcohol use disorder, with the patient expressing interest in treatments like Vivitrol. - For weight management, the patient will contact the new insurer, [employer], to determine if the current plan covers Wegovy for weight loss. - If coverage is confirmed, I will complete any required prior authorization for ms. - The patient will restart lithium tonight as prescribed by the patient's psychiatrist. - I will place an order for blood work for routine health monitoring. - Plan to follow up in six months. Discussion Notes I discussed the management plan with the patient. Regarding the patient's interest in restarting Wegovy for weight management, I outlined the necessary steps, starting with the patient contacting the new insurance provider, [employer], to confirm if the employer's plan covers this medication for weight loss. I agreed to complete any required authorization forms if coverage is available. We also addressed the patient's desire to stop drinking alcohol. Given that naltrexone was ineffective, I will make an appointment for the patient with a substance use disorder specialist in [place] to explore other options, such as Vivitrol injections, which the patient expressed interest in. The patient was advised to restart the lithium medication, which is now available at the pharmacy. I will place an order for blood work as requested for twice-yearly monitoring. We agreed on a follow-up appointment in six months. Patient Instructions - Call your new insurance company, [employer], to ask if your plan covers the medication Wegovy for weight loss. - If the medication is covered, ask the insurance company what is needed from your doctor to get it approved. - You will receive a call from a specialist's office in [place] to schedule an appointment to discuss treatment for alcohol use. - Go to the lab for blood work as ordered. - Restart your lithium medication tonight as directed by your psychiatrist. - Please schedule a follow-up appointment in our office in six months. Orders: Orders Basic Metabolic Panel 03/21/25 F10.90 - Alcohol use, unspecified, uncomplicated Lipid Panel 03/21/25 F10.90 - Alcohol use, unspecified, uncomplicated Thyroid Stimulating Hormone 03/21/25 F10.90 - Alcohol use, unspecified, uncomplicated UA and rflx microscopic 03/21/25 F10.90 - Alcohol use, unspecified, uncomplicated Complete Blood Count no Diff 03/21/25 F10. - Alcohol use, unspecified, uncomplicated Medications: Refilled semaglutide (weight loss) (Eloy) administer weeks 1 through 4 of therapy 0.25 mg (0.5 mL) subcut QWEEK 2 mL 1RF E66.01 - Morbid (severe) obesity due to excess calories
[2025-03-21 15:54] VITALS: BP 132/70; PULSE 85; TEMP 36.2; O2SAT 97; BMI 36.9
== END 2025-03-21 16:33 | disposition home or self-care (01) ==
LOC: HO.HMCH 15:50
PROVIDERS: PCP Internal Medicine; Visit Provider Internal Medicine
DX: F10.90 Alcohol use, unspecified, uncomplicated (principal)

== ENCOUNTER 2025-04-04 10:20 | Emergency (ER) | payer OTHER, SELFPAY ==
[2025-04-04 10:24] VITALS: BP 150/98; PULSE 95; RESP 18; TEMP 36.6; O2SAT 94; BMI 33.2
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
[2025-04-04 11:43] VITALS: BP 150/98; PULSE 95; RESP 18; TEMP 36.6; O2SAT 94
== END 2025-04-04 11:00 | disposition home or self-care (01) ==
PROVIDERS: Emergency Provider Emergency Medicine Emergency Medical Services; PCP Internal Medicine
DX: S06.0X0A Concussion without loss of consciousness, initial encounter (principal); R51.9 Headache, unspecified; R42 Dizziness and giddiness; Y04.2XXA Assault by strike against or bumped into by another person, initial encounter; Y93.9 Activity, unspecified; Y92.810 Car as the place of occurrence of the external cause; Y99.8 Other external cause status
CPT/HCPCS: 99282